=== PATIENT | female | born 1995 | race Caucasian/White ===

== ENCOUNTER → 2022-01-18 08:26 | Outpatient (CLI) | payer BC, SELFPAY ==
[2022-01-18 09:50] LABS: HCG,Quantitative 12424 mIU/ml (0-5.42)
== END ==
PROVIDERS: PCP Pediatrics; Visit Provider Obstetrics & Gynecology
DX: N92.6 Irregular menstruation, unspecified (principal); Z32.00 Encounter for pregnancy test, result unknown
CPT/HCPCS: 36415; 84702

== ENCOUNTER → 2022-01-29 16:21 | Outpatient (CLI) | payer BC, SELFPAY ==
[2022-01-31 10:13] LABS: Progesterone 13.1 ng/mL (.)
[2022-02-01 14:25] LABS: Neisseria gonorrhoeae, NAA Negative (Negative)
== END ==
PROVIDERS: PCP Pediatrics; Visit Provider Obstetrics & Gynecology
DX: Z34.90 Encounter for supervision of normal pregnancy, unspecified, unspecified trimester (principal)
CPT/HCPCS: 36415; 84144; 84702; 87086; 87491; 87591

== ENCOUNTER → 2022-02-13 16:37 | Outpatient (CLI) | payer BC, SELFPAY ==
[2022-02-13 17:53] LABS: Basophils # 0.1 K/mm3 (0-0.2); Basophils % 0.7 % (0.1-2.0); Eosinophils # 0.1 K/mm3 (0.0-0.4); Eosinophils % 0.8 % (0.1-12.0); Hematocrit 38.2 % (37.0-47.0); Hemoglobin 13.2 g/dL (12.2-16.2); Lymphocytes # 2.1 K/mm3 (0.7-4.5); Lymphocytes % 25.4 % (10-50); Mean Corpuscular HGB Conc 34.5 g/dL (31.8-35.4); Mean Corpuscular Hemoglobin 30.9 pg (27.0-31.2); Mean Corpuscular Volume 89.7 fl (81-99); Mean Platelet Volume 7.1 fl (7.4-10.4); Monocytes # 0.3 K/mm3 (0.1-1.0); Monocytes % 3.6 % (1.7-9.3); Neutrophils # 5.7 K/mm3 (1.8-7.8); Neutrophils % 69.5 % (37.0-80.0); Platelet Count 250 K/mm3 (142-424); Red Blood Count 4.25 M/mm3 (4.20-5.40); Red Cell Distribution Width 13.8 % (11.5-17.5); White Blood Count 8.3 K/mm3 (4.8-10.8)
[2022-02-15 09:31] LABS: HIV Screen 4th Generation wRfx Non Reactive (Non Reactive); Rubella Antibodies, IgG 1.27 index (Immune >0.99)
[2022-02-15 18:06] LABS: Rapid Plasma Reagin Ab Titer Non Reactive (NonRea<1:1)
[2022-02-19 23:37] LABS: Hepatitis B Surface Antigen NEGATIVE; Hepatitis C Antibody <0.1
== END ==
PROVIDERS: PCP Pediatrics; Visit Provider Obstetrics & Gynecology
DX: Z34.90 Encounter for supervision of normal pregnancy, unspecified, unspecified trimester (principal)
CPT/HCPCS: 36415; 85025; 86593; 86703; 86762; 86850; 87086; 87340; 87380; G0432

== ENCOUNTER → 2022-04-28 14:41 | Outpatient (CLI) | payer BC, SELFPAY ==
--- NOTE | 2022-04-28 14:47 | US_ITS ---
FINAL REPORT CLINICAL HISTORY: 20 week anatomy scan FINDINGS: There is a single, living intrauterine gestation with average ultrasound age of 20 weeks 0 days. Heart rate is detected at 140 beats per minute. Cervix measures 4.05 cm. Fetus in the breech position. There is grade 1 anterior placenta with placenta previa noted. IMPRESSION: Placenta previa. Recommend follow-up level 2 ultrasound at high risk center. Reviewed, Interpreted and Dictated by Patrick Haskins MD Transcribed by Lashaun Blanco Authenticated and . [facility]
== END ==
PROVIDERS: PCP Pediatrics; Visit Provider Obstetrics & Gynecology
DX: Z34.90 Encounter for supervision of normal pregnancy, unspecified, unspecified trimester (principal); Z3A.20 20 weeks gestation of pregnancy
CPT/HCPCS: 76811

== ENCOUNTER → 2022-06-27 12:49 | Outpatient (CLI) | payer BC, SELFPAY ==
--- NOTE | 2022-06-27 12:49 | US_ITS ---
FINAL REPORT CLINICAL HISTORY: following placenta previa COMPARISON: 04/28/2022 FINDINGS: There is a single live intrauterine gestation. Presentation is cephalic. The cervix is closed and measures 3 cm. Placenta is anterior, grade 2. There is no evidence of placenta previa. movement is noted. heart rate is 142 beats per minute. Three-vessel cord with satisfactory umbilical cord insertion. Four-chamber heart is noted. ABDOMEN: Both kidneys are unremarkable. Stomach is unremarkable. AMNIOTIC FLUID: 12 cm, normal MEASUREMENTS: ULTRASOUND AGE: 29 weeks 3 days. GESTATION AGE: 27 weeks 6 days. ESTIMATED WEIGHT: 1312 g GROWTH PERCENTILE: 80% BPD: 7.54 cm corresponding to 30 weeks 2 days. OFD: 9.35 cm corresponding to 28 weeks 5 days. HC: 26.68 cm corresponding to 29 weeks 1 day. AC: 24.68 cm corresponding to 29 weeks 0 days. FL: Length 5.43 cm corresponding to 28 weeks 6 days. HC/AC: 1.08 CI: 81% FL/BPD: 72% FL/AC: 22% IMPRESSION: Single living IUP with an ultrasound age of 29 weeks 3 days. No evidence of placenta previa. No anomalies noted. Reviewed, Interpreted and Dictated by Emiliano Londono III, MD Transcribed by Stefanie Tay Authenticated and [facility]
== END ==
PROVIDERS: PCP Pediatrics; Visit Provider Obstetrics & Gynecology
DX: O44.00 Complete placenta previa NOS or without hemorrhage, unspecified trimester (principal)
CPT/HCPCS: 76816

== ENCOUNTER 2022-06-30 08:11 | Outpatient (CLI) | payer BC, SELFPAY ==
[2022-06-30 08:31] LABS: Basophils % 0.2 % (0.1-2.0); Eosinophils # 0.1 K/mm3 (0.0-0.4); Eosinophils % 1.3 % (0.1-12.0); Hematocrit 37.2 % (37.0-47.0); Hemoglobin 12.5 g/dL (12.2-16.2); Lymphocytes # 1.9 K/mm3 (0.7-4.5); Lymphocytes % 21.1 % (10-50); Mean Corpuscular HGB Conc 33.7 g/dL (31.8-35.4); Mean Corpuscular Volume 94.9 fl (81-99); Mean Platelet Volume 8.3 fl (7.4-10.4); Monocytes # 0.4 K/mm3 (0.1-1.0); Monocytes % 4.7 % (1.7-9.3); Neutrophils # 6.7 K/mm3 (1.8-7.8); Neutrophils % 72.7 % (37.0-80.0); Platelet Count 243 K/mm3 (142-424); Red Blood Count 3.92 M/mm3 (4.20-5.40); Red Cell Distribution Width 13.8 % (11.5-17.5); White Blood Count 9.2 K/mm3 (4.8-10.8)
[2022-06-30 08:38] LABS: Glucose,Fasting 78 mg/dl (74-100)
[2022-06-30 10:10] VITALS: BP 114/74; PULSE 73; RESP 18; O2SAT 99
[2022-06-30 11:15] LABS: Glucose 1 Hour 122 mg/dL (74-100)
== END 2022-06-30 10:22 | disposition home or self-care (01) ==
PROVIDERS: PCP Pediatrics; Visit Provider Obstetrics & Gynecology
DX: Z34.90 Encounter for supervision of normal pregnancy, unspecified, unspecified trimester (principal); Z3A.20 20 weeks gestation of pregnancy
CPT/HCPCS: 36415; 82951; 85025; 96372; J2790

== ENCOUNTER → 2022-08-29 17:02 | Outpatient (CLI) | payer BC, SELFPAY | PROVIDERS: Visit Provider Obstetrics & Gynecology | DX: Z34.93 Encounter for supervision of normal pregnancy, unspecified, third trimester (principal); Z3A.37 37 weeks gestation of pregnancy | CPT/HCPCS: 86403 ==

== ENCOUNTER 2022-09-13 08:45 | Inpatient (IN) | payer BC, SELFPAY ==
[2022-09-13 07:31] VITALS: BMI 26.3
[2022-09-13 08:18] LABS: Microscopic, Urine URINE MICROSCOPIC (MICROSCOPIC)
[2022-09-13 08:20] VITALS: BP 127/89; PULSE 80; RESP 18; TEMP 36.9; O2SAT 99; BMI 26.3
[2022-09-13 08:25] LABS: Appearance,Urine CLEAR (Clear); Bilirubin,Urine Negative (Negative); Blood, Urine TRACE-I (Negative); Color,Urine YELLOW (Yellow); Glucose,Urine (UA) Negative (Negative); Ketones,Urine Negative (Negative); Leukocyte Esterase,Urine Negative (Negative); Nitrate,Urine Negative (Negative); PH,Urine 6.5 (5.0-8.5); Protein,Urine Negative (Negative); Urobilinogen,Urine 0.2 EU/dl (0.2)
[2022-09-13 08:31] LABS: Fetal Membrane Rupture (Rapid) Positive (Negative)
[2022-09-13 08:41] LABS: Bacteria,Urine Trace /lpf
[2022-09-13 08:42] LABS: Benzodiazepines Screen,Urine Negative ng/ml (<200)
[2022-09-13 08:43] LABS: Amphetamine/Metha Screen,Urine Negative ng/ml (<1000)
[2022-09-13 08:44] LABS: Barbiturates Screen,Urine Negative ng/ml (<200); Cannabinoid Screen,Urine Negative ng/ml (<50)
[2022-09-13 08:45] LABS: Cocaine Screen,Urine Negative ng/ml (<300); Methadone Screen,Urine Negative ng/ml (<300)
[2022-09-13 08:46] LABS: Opiate Screen,Urine Negative ng/ml (<300)
[2022-09-13 08:47] LABS: Phencyclidine Screen,Urine Negative ng/ml (<25)
[2022-09-13 09:42] LABS: Basophils % 0.3 % (0.1-2.0); Eosinophils # 0.1 K/mm3 (0.0-0.4); Eosinophils % 0.7 % (0.1-12.0); Hematocrit 35.1 % (37.0-47.0); Hemoglobin 11.8 g/dL (12.2-16.2); Lymphocytes # 1.8 K/mm3 (0.7-4.5); Lymphocytes % 18.7 % (10-50); Mean Corpuscular HGB Conc 33.7 g/dL (31.8-35.4); Mean Corpuscular Hemoglobin 28.9 pg (27.0-31.2); Mean Corpuscular Volume 85.9 fl (81-99); Mean Platelet Volume 8.7 fl (7.4-10.4); Monocytes # 0.6 K/mm3 (0.1-1.0); Monocytes % 5.9 % (1.7-9.3); Neutrophils # 7.2 K/mm3 (1.8-7.8); Neutrophils % 74.5 % (37.0-80.0); Platelet Count 208 K/mm3 (142-424); Red Blood Count 4.08 M/mm3 (4.20-5.40); Red Cell Distribution Width 14.6 % (11.5-17.5); White Blood Count 9.6 K/mm3 (4.8-10.8)
--- NOTE | 2022-09-13 16:08 | EXP.OB.APHP ---
OB - H&P: HPI Antepartum History of Present Illness Chief complaint: Leakage of fluid History of present illness: Mrs Shannon Zamudio is a 27 yo at 39w0d who presents to [facility] Labor and Delivery with complaint of leakage of fluid this morning at 0615. Admits to contractions. Baby is very active. Amnisure was positive. GBS negative. History of Present Criteria for establishing EDC:: LMP confirmed by 1st trimester US care: good care Ultrasounds: normal mid trimester US Obstetrical complications: none Medical complications: none Labs Blood type: O (-) negative Rubella: immune RPR/VDRL: nonreactive GBS status: negative HBsAG: negative PFSH [facility] Disclaimer: The information contained in this section may have been updated after the patient was seen, as this information can be updated by other users. Medical History (Updated 09/13/22 @ 16:17 by Ivett Laurne DO) 39 weeks gestation of History of miscarriage Placenta previa antepartum in second trimester related nausea, antepartum Rh negative status during Spontaneous onset of labor Spontaneous rupture of membranes Threatened in early Surgical History No history of previous surgery Family History Other No significant family history Social History Smoking Status: Never smoker alcohol intake: never current occupational status: previously employed Travel in the last 8 weeks: None Review of Systems Review of Systems Review of systems:: pertinent systems reviewed and negative unless documented below Meds Home Medications and Allergies Home Medications Medication Instructions Recorded Confirmed Type vit no.95-ferrous 1 tab PO DAILY Supplement 09/13/22 09/13/22 History fumarate 28 mg-folic acid 800 mcg tablet () New Prescriptions to Start Prescriptions: Allergies Allergy/AdvReac Type Severity Reaction Status Date / Time No Known Allergies Allergy Verified 09/12/22 09:10 OB - H&P: Exam Physical Exam Vital signs: Temp Pulse Resp BP Pulse Ox O2 Del Method 98.4 F 80 18 127/89 99 Room Air 09/13/22 08:20 09/13/22 08:20 09/13/22 08:20 09/13/22 08:20 09/13/22 08:20 09/13/22 08:20 Constitutional no acute distress Routine HEENT Exam Head: Present normocephalic and atraumatic Eye: Absent conjunctivae pink ENT: Present mucous membranes moist and dentition normal Routine Neck Exam Present full ROM Routine Respiratory Exam Present CTA bilaterally and normal respiratory effort Routine Cardiovascular Exam Present RRR Routine Abdominal Exam Present soft (Gravid); Absent tenderness Routine Rectal Exam Patient deferred: visual exam Routine Exam External: Present normal urethra appearance; Absent erythema, swelling, tenderness, lesions or lacerations Routine Extremities Exam Present edema (+2 bilateral lower extremity edema) and full ROM; Absent calf tenderness Routine Neurological Exam Present alert, oriented X3 and moving all extremities Routine Psychiatric Exam Present normal affect and cooperative Detailed Labor and Delivery Exam Dilation (cm): 1 Effacement (%): 75 Cervix position: mid station: -1 Consistency: soft Membranes: ruptured (spontaneous rupture at 0615, forebag noted during exam and amniotomy performed at 1544, clear fluid noted) and spontaneously ruptured Amniotic fluid: clear Baseline heart rate: 125 monitor accelerations: Present monitor decelerations: Early MCC variability: Moderate (11-25) Contraction frequency (min): 3 Tachysystole: No OB - Results Labs Labs: Short CBC 09/13/22 Range/Units 09:26 WBC 9.6 (4.8-10.8) K/mm3 Hgb 11.8 L (12.2-16.2) g/dL Hct 35.1 L (37.0-47.0) % Plt Count 208
--- NOTE | 2022-09-13 18:44 | EXP.ANES.CKL ---
[facility] Disclaimer: The information contained in this section may have been updated after the patient was seen, as this information can be updated by other users. Medical History 39 weeks gestation of History of miscarriage Placenta previa antepartum in second trimester related nausea, antepartum Rh negative status during Spontaneous onset of labor Spontaneous rupture of membranes Threatened in early Surgical History No history of previous surgery Family History Other No significant family history Social History Smoking Status: Never smoker alcohol intake: never substance use type: denies use current occupational status: previously employed Travel in the last 8 weeks: None [facility] Anesthesia Checklist Patient Identification Patient Identification: Arm Band and Verbal (Name & ) Structural Data Admitted From: Inpatient Planned Operative Procedure/s: Labor epidural Consent for Planned Operative Procedure(s) Verified: Yes NPO Status Verified Time NPO: 00:00 Chart Verification Results Verified: CBC Additional verifications Patient : Yes Airway Assessment Mallampati Score:: Class I C-Spine Mobility Assessed: Yes TMJ Mobility Assessed: Yes Dentition: Good Dentition Neurological Assessment Level of Consciousness: Awake Hx Seizures: No Numbness or tingling in extremities: No Anesthesia Plan Anesthesia Risk discussed: Yes Anesthesia Plan: Verified ASA Class: II Anesthesia Type: Epidural
[2022-09-14] VITALS (10 sets, daily range): BP systolic 115–148; BP diastolic 61–94; PULSE 73–89; RESP 13–22; TEMP 36.6–36.9; O2SAT 96–100
--- NOTE | 2022-09-14 05:37 | EXP.LABOR.NO ---
Labor Note Subjective: Date: 09/14/22 Time: 07:10 regular contraction Comment:: Uncomfortable with epidural in place but infusion bottle empty Objective: NST:: Reactive Contractions:: every 2-3 minutes Cervical Dilation:: 4-5 Effacement:: 80% Station: -1 Membranes: ruptured and spontaneously ruptured Fetus: Monitoring?: Yes Assessment: Labor progressing?: No Problems: (1) 39 weeks gestation of : Category: Medical Code(s): Z3A.39 - 39 weeks gestation of (2) Spontaneous rupture of membranes: Category: Medical (3) Spontaneous onset of labor: Category: Medical (4) Rh negative status during : Qualifiers: Trimester: third trimester Qualified Code(s): O26.893 - Other specified related conditions, third trimester; Z67.91 - Unspecified blood type, Rh negative Category: Medical Code(s): O26.899 - Other specified related conditions, unspecified trimester; Z67.91 - Unspecified blood type, Rh negative (5) Failure to progress in labor: Category: Medical Code(s): O62.2 - Other uterine inertia Plan: Plan for ?: Yes Additional information:: Cervical exam unchanged over 6 hours. Pitocin reached 15 units. Multiple position changes. Category 2 strip with intermittent variables. Epidural pump ran out and patient became very uncomfortable Decision was made to proceed with primary Discussed risks, benefits, alternatives, expectations and possible complications of surgery. All questions addressed and answered. Patient voiced understanding of risks and possible complications. Consent form signed Proceed with primary
[2022-09-14 06:27] LABS: Cord Blood PH 7.36 (7.35-7.45)
--- NOTE | 2022-09-14 07:14 | P.PNANES_ITS ---
[facility] Anesthesia Record Part I Anesthesia Record I Intake, IV Amount: 850 Hydration:: Adequate Estimated blood loss (mL): 800 Urine output (mL): 200 Blood Pressure: 140/92 SaO2: 97 Pulse Rate: 88 Airway Patency:: Patent Respiratory Rate: 20 Temperature: 98.5 F Pain scale (0-10): 5 Nausea:: No Vomiting:: No Patient is:: Awake Stable to PACU at:: 07:10
--- NOTE | 2022-09-14 07:17 | EXP.OP.NOTE ---
Date of procedure: 09/14/22 Pre-op Diagnosis:: 1. IUP at 39w1d 2. Spontaneous rupture of membranes 3. Onset of labor 4. Failure to progress Post-op Diagnosis:: 1. IUP at 39w1d 2. Spontaneous rupture of membranes 3. Onset of labor 4. Failure to progress Procedure performed:: Primary Low Transverse Section Surgeon:: Ivett Lauren DO Wet Cleaner Machine(s):: Mehrdad Doan MD MORTICIAN [employer]PPLIES SALES REPRESENTATIVE:: Claire Rice Anesthesia: spinal Estimated blood loss (mL): 800 Clinical Note:: Mrs Shannon Zamudio is a 27 yo at 39w0d who presents to [facility] Labor and Delivery with complaint of leakage of fluid this at 0615 on 09/13/22. Amnisure was positive. GBS negative. Pitocin was started to augment labor. At 1544 forebag was noted and amniotomy was performed with large amount of clear fluid. Cervical exam at 1544 was 1.5/75/-1. At 1900 she was 3 cm dilated and received and epidural. At 0045 she was 4.5/80/-1. Baby started having category 2 strip with intermittent variables and intermittent minimal and moderate variability. Epidural pump ran out stopped around 0200. She began to get uncomfortabe. At 1630 cervix was unchanged with variable decelerations noted, category 2 strip. Pitocin was stopped. Decision was made to proceed with primary for failiure to progress. At 0530 cervical exam was performed and was unchanged. Operative findings:: 1. Live male baby (baby's name is Gemma) weighing 8 lb 14 oz, APGARs 8, 9. 2. Nuchal cord x 1, non compressing 3. Grossly normal appearing uterus, bilateral fallopian tubes and ovaries Operative note:: The risks, benefits and alternatives of the procedure were reviewed with the patient. Informed consent was obtained. Patient was taken to the operating room where spinal anesthesia was placed. The patient received 2 grams of Ancef preoperatively. Patient was placed in dorsal supine position with a leftward tilt. SCDs in place. Gaona catheter had been placed and was draining clear urine prior to the start of the procedure. Vagina was prepped with Betadine swabs x 3. heart tones were obtained. Patient was then prepped and draped in normal sterile fashion. Allis clamp test was performed to ensure adequate anesthesia. A Pfannenstiel skin incision was made 2 cm above pubic symphysis. This was carried through to underlying layer of fascia. Fascia was incised in midline, extended laterally with Thomas scissors. Superior aspect of fascial incision was grasped with two Jade clamps, elevated up, and rectus muscle dissected off bluntly and sharply with Thomas scissors. The retcus muscle was then in the midline and the peritoneum was entered bluntly with a digit. Peritoneal incision was then extended superiorly and inferiorly with good visualization of the bladder. Aayush retractor was inserted. The lower uterine segment was incised in a transverse fashion. Head was delivered without difficulty. Nuchal x 1. Body delivered through cord. Remainder of body was delivered without difficulty. Mouth and nares were bulb suctioned. Spontaneous cry was noted. Delayed cord clamping was performed for 60 seconds. The umbilical cord was clamped and cut. The infant was handed to awaiting pediatric staff in stable condition. Dr. Elizalde was present. Apgars were 8(1 min), 9(5 min). Section of umbilical cord was collected for cord gases. Cord blood was obtained. Gentle traction on the umbilical cord and uterine fundal massage delivered the placenta. Placenta was intact. Uterus was cleared of all clots and debris with a moist laparotomy sponge. Corners of the uterine incision were grasped with Allis clamps. The uterine incision was reapproximated with # 1 Vicryl suture in a running, locked stitch. Second layer of the same stitch was used to imbricate the incision. Vesicouterine peritoneum was reapproximated in a running locked stitch with 0-Vicryl suture. Hemostasis was noted. Posterior cul-de-sac was cleaned with moist laparotomy sponge. Gutters cleared
--- NOTE | 2022-09-14 07:56 | SUR.OPER ---
0618- Viable infant male born at this time 0630- spoke to JulissaRT regarding cord gas of 7.35, results relayed to MD Lauren, NNO 0630- 0.2mg of IM Methergine given at this time per verbal order from MD Lauren, administered by SYLVIA Kidd
[2022-09-15 07:21] LABS: Basophils % 0.2 % (0.1-2.0); Eosinophils # 0.1 K/mm3 (0.0-0.4); Hematocrit 27.5 % (37.0-47.0); Lymphocytes # 1.6 K/mm3 (0.7-4.5); Lymphocytes % 14.2 % (10-50); Mean Corpuscular HGB Conc 32.9 g/dL (31.8-35.4); Mean Corpuscular Hemoglobin 29.5 pg (27.0-31.2); Mean Corpuscular Volume 89.8 fl (81-99); Mean Platelet Volume 8.8 fl (7.4-10.4); Monocytes # 0.5 K/mm3 (0.1-1.0); Monocytes % 4.1 % (1.7-9.3); Neutrophils # 8.9 K/mm3 (1.8-7.8); Neutrophils % 80.5 % (37.0-80.0); Platelet Count 194 K/mm3 (142-424); Red Blood Count 3.06 M/mm3 (4.20-5.40); Red Cell Distribution Width 14.5 % (11.5-17.5); White Blood Count 11.1 K/mm3 (4.8-10.8)
--- NOTE | 2022-09-15 07:24 | EXP.ANES.II ---
[facility] Anesthesia Record Part II Anesthesia Record Part II Discharge Time: 07:40 Destination: Obstetric PACU nurse assessment reviewed?: Yes Patient Condition:: Good Anesthesia Complications:: None Swallowing reflex intact?: Yes Cyanosis?: No Blood Pressure: 148/93 Pulse Rate: 89 Temperature: 98.5 F Mental Status: Alert & Oriented Pain level:: 0 Nausea and/or vomitting:: None Intake, IV Amount: 0
[2022-09-15 07:25] VITALS: BP 148/93; PULSE 89; TEMP 36.9
[2022-09-15 07:35] VITALS: BP 100/55; PULSE 68; RESP 16; TEMP 36.5; O2SAT 97
--- NOTE | 2022-09-15 10:47 | P.PN_ITS ---
Subjective *Date: 09/15/22 *Time: 08:15 Interval history: She is doing very well this morning. She is eating and drinking and ambulating. Her hemoglobin is 9.0. She looks pale but she denies any shortness of breath or dizziness. She is breast-feeding. Her pain is well-controlled. Medical Exam Vital signs and Labs for Last 24 Hours: Vital Signs Temp Pulse Resp BP Pulse Ox O2 Del Method 09/15/22 07:35 97.7 F 68 16 100/55 L 97 Room Air 09/14/22 17:45 98.3 F 77 20 115/75 100 Room Air 09/14/22 11:00 73 18 126/71 98 Room Air 09/14/22 13:00 77 20 121/65 99 Room Air Intake and Output 09/14/22 09/15/22 09/15/22 19:59 03:59 11:59 Intake Total 0 / 0 Balance 0 / 0 Intake: Intake, Total IV Amount 0 / 0 Laboratory Results - last 24 hr 09/13/22 09:26: Blood Type O Negative, Antibody Screen Positive, Antibody Identification Anti-D, Crossmatch (AHG) See Detail 09/15/22 07:04: WBC 11.1 H, RBC 3.06 L, Hgb 9.0 L, Hct 27.5 L, MCV 89.8, MCH 29.5, MCHC 32.9, RDW 14.5, Plt Count 194, MPV 8.8, Neut % (Auto) 80.5 H, Lymph % (Auto) 14.2, [facility] % (Auto) 4.1, Eos % (Auto) 1.0, Baso % (Auto) 0.2, Neut # (Auto) 8.9 H, Lymph # (Auto) 1.6, [facility] # (Auto) 0.5, Eos # (Auto) 0.1, Baso # (Auto) 0.0 I & O for Labs for Last 24 Hours: Intake & Output 09/12/22 09/13/22 09/14/22 09/15/22 11:59 11:59 11:59 11:59 Intake Total 850 / 850 0 / 0 Balance 850 / 850 0 / 0 Weight 144 lb Constitutional: Present no acute distress Comment:: She looks pale. Head: Present atraumatic Respiratory: Present normal respiratory effort; Absent accessory muscle use Assessment and Plan *Assessment and plan (1) Failure to progress in labor: Status: Acute Category: Medical Code(s): O62.2 - Other uterine inertia (2) delivery delivered: Status: Acute Category: Medical Code(s): O82 - Encounter for delivery without indication Plan She is doing very well. If she continues to do well we will consider sending her home tomorrow. She will continue with breast-feeding.
--- NOTE | 2022-09-16 08:36 | EXP.DC.SUM ---
General Admission date:: 09/13/22 Discharge date: 09/16/22 HPI HPI HPI: She is a 27-year-old 2 para 0 at 39 weeks gestational age. She arrived in the morning of September 13, 2022 with ruptured membranes. She was started on IV oxytocin and really failed to progress beyond about 3 to 4 cm. As result of this pelvic disproportion was diagnosed and she was taken for a primary lower segment transverse section. Hospital Course Hospital Course Hospital Course: She arrived with ruptured membranes and was started on IV oxytocin. She subsequently had 4 water broken and she really failed to progress beyond about 3 cm. As result of that pelvic disproportion was diagnosed and she was taken for a primary lower segment transverse section. She delivered spontaneously a liveborn male child at 6:18 AM on the morning of September 14, 2022. The baby weighed 8 pounds 14 ounces and had Apgars of 8 at 1 minute and 9 at 5 minutes. She has done well post operatively and has remained afebrile throughout her hospitalization. She is eating and drinking and ambulating. She is breast-feeding. Her incision is clean and dry and her pain is well-controlled with the T AP block. She is just taking [id number] analgesics. She has O Rh- blood and her baby had negative blood so she did not receive RhoGAM. She is rubella immune and group B streptococcus negative. Her digital marketing program manager is Dr. Wells. She is discharged home to follow-up with Dr. Lauren in 2 weeks time. She will continue with her vitamins. She will brain picker some iron tablets as well. She was given a prescription for Percocet 5/325 number 20 tablets. She will continue with Tylenol and ibuprofen. She was given the usual instructions with respect to limiting her activity, driving and sexual activity. She was given instructions with respect to wound care. Her condition on discharge is stable and improved. Exam Data for Last 24 hours Vital signs and Labs for Last 24 Hours: Temp Pulse Resp BP Pulse Ox O2 Del Method 97.7 F 68 16 100/55 L 97 Room Air 09/15/22 07:35 09/15/22 07:35 09/15/22 07:35 09/15/22 07:35 09/15/22 07:35 09/15/22 07:35 I & O for Last 24 hours: Intake & Output 09/13/22 09/14/22 09/15/22 09/16/22 11:59 11:59 11:59 11:59 Intake Total 850 / 850 0 / 0 Balance 850 / 850 0 / 0 Weight 144 lb Constitutional Constitutional: no acute distress *Routine HEENT Exam Head: Present normocephalic *Routine Neck Exam Neck: Present full ROM *Routine Respiratory Exam Respiratory: Present normal respiratory effort; Absent accessory muscle use *Routine Abdominal Exam Abdominal: Present soft; Absent tenderness Comments: Her incision is clean and dry. DS: Diagnosis Discharge Diagnosis (1) Failure to progress in labor: Status: Acute Code(s): O62.2 - Other uterine inertia (2) delivery delivered: Status: Acute Code(s): O82 - Encounter for delivery without indication (3) Rh negative status during : Status: Acute Code(s): O26.899 - Other specified related conditions, unspecified trimester; Z67.91 - Unspecified blood type, Rh negative Qualifiers: Trimester: third trimester Qualified Code(s): O26.893 - Other specified related conditions, third trimester; Z67.91 - Unspecified blood type, Rh negative (4) anemia: Status: Acute Code(s): O90.81 - Anemia of the puerperium Meds Home Medications and Allergies Home Medications Medication Instructions Recorded Confirmed Type vit no.95-ferrous 1 tab PO DAILY Supplement 09/13/22 09/13/22 History fumarate 28 mg-folic acid 800 mcg tablet () oxycodone-acetaminophen 5 mg-325 1 tab PO Q6H PRN pain #14 tabs 09/16/22 Rx mg tablet New Prescriptions to Start Prescriptions: oxycodone-acetaminophen Mehrdad Doan
== END 2022-09-16 11:30 | disposition home or self-care (01) | DRG 788 ==
LOC: OBOUT 08:45 → OB 08:45
PROVIDERS: Admitting Provider Nurse Practitioner Obstetrics & Gynecology; PCP Internal Medicine Adolescent Medicine; Visit Provider Obstetrics & Gynecology
PROC: 10D00Z1 Extraction of Products of Conception, Low, Open Approach (ICD-10-PCS; principal; 2022-09-14 05:30)
DX: O69.81X0 Labor and delivery complicated by cord around neck, without compression, not applicable or unspecified (principal); O62.2 Other uterine inertia; Z3A.39 39 weeks gestation of pregnancy; Z37.0 Single live birth
CPT/HCPCS: 59514; 59025; 80305; 81001; 82800; 84112; 85025; 86850; 86870; 94761; 96374; C9290; G0283; J0595; J1756; J2405

== ENCOUNTER 2023-03-06 09:55 | Outpatient (CLI) | payer BC, SELFPAY ==
[2023-03-06 10:31] LABS: Basophils % 0.5 % (0.1-2.0); Eosinophils # 0.1 K/mm3 (0.0-0.4); Eosinophils % 2.9 % (0.1-12.0); Hematocrit 41.4 % (37.0-47.0); Hemoglobin 14.4 g/dL (12.2-16.2); Lymphocytes # 1.5 K/mm3 (0.7-4.5); Lymphocytes % 39.4 % (10-50); Mean Corpuscular HGB Conc 34.8 g/dL (31.8-35.4); Mean Corpuscular Hemoglobin 30.8 pg (27.0-31.2); Mean Corpuscular Volume 88.6 fl (81-99); Mean Platelet Volume 7.2 fl (7.4-10.4); Monocytes # 0.2 K/mm3 (0.1-1.0); Monocytes % 4.5 % (1.7-9.3); Neutrophils % 52.6 % (37.0-80.0); Platelet Count 198 K/mm3 (142-424); Red Blood Count 4.67 M/mm3 (4.20-5.40); Red Cell Distribution Width 13.5 % (11.5-17.5); White Blood Count 3.8 K/mm3 (4.8-10.8)
[2023-03-06 10:54] LABS: Alanine Aminotransferase 18 U/L (12-78); Albumin Level 4.2 g/dl (3.5-5.0); Albumin/Globulin Ratio 1.4 (1.1-1.8); Alkaline Phosphatase 56 U/L (38-126); Anion Gap 14.9 mEq/L (5-15); Aspartate Amino Transferase 23 U/L (14-36); Bilirubin,Total 0.3 mg/dl (0.2-1.3); Blood Urea Nitrogen 7 mg/dl (7-17); Calcium 9.3 mg/dl (8.4-10.2); Carbon Dioxide 25 mmol/L (22.0-30.0); Chloride 105 mmol/L (98-107); Estimated Glomerular Filt Rate 100 ml/min (>60); GFR (African American) 121 ML/MIN (>60); Globulin 2.9 g/dL (1.3-3.2); Glucose 98 mg/dl (74-100); Potassium 3.9 mmoL/L (3.5-5.1); Sodium 141 mmol/L (136-145); Total Protein,Serum 7.1 g/dl (6.3-8.2)
[2023-03-06 11:25] LABS: Thyroid Stimulating Hormone < 0.02 uIU/mL (0.465-4.68)
[2023-03-06 11:44] LABS: Vitamin B12 609 pg/mL (239-931)
[2023-03-06 17:53] LABS: Ferritin 10.2 ng/ml (6.24-137)
== END 2023-03-06 23:59 ==
LOC: LAB 09:56
PROVIDERS: PCP Internal Medicine Adolescent Medicine; Visit Provider Internal Medicine Adolescent Medicine
DX: N92.1 Excessive and frequent menstruation with irregular cycle (principal)
CPT/HCPCS: 36415; 80053; 82607; 82728; 84443; 85025

== ENCOUNTER 2023-03-07 13:23 | Emergency (ER) | payer BC, SELFPAY ==
[2023-03-07 13:25] VITALS: BP 120/87; PULSE 115; RESP 16; TEMP 36.7; O2SAT 99; BMI 21.0
[2023-03-07 13:40] VITALS: BP 136/83; PULSE 89; RESP 16; O2SAT 98
[2023-03-07 13:41] LABS: Coronavirus 19, PCR Not Detected (NotDetected); Influenza A, PCR Not Detected (NotDetected); Influenza B, PCR Not Detected (NotDetected)
--- NOTE | 2023-03-07 13:48 | PC.NURSE ---
Dr. Stone speaking with Dr. Santana at this time.
[2023-03-07] MEDS: IBUPROFEN 600 MG TABLET PO (13:59)
[2023-03-07 14:00] VITALS: BP 113/84; PULSE 86; RESP 18; O2SAT 99
[2023-03-07] MEDS: ACETAMINOPHEN 500MG TAB 1000 MG PO (14:00)
--- NOTE | 2023-03-07 14:07 | HMH.EDGENADL ---
Discharge Plan Disposition Patient Disposition: Home, Self-Care Condition: Good Prescriptions Prescriptions: No Action ferrous sulfate 325 mg (65 mg iron) tablet 325 mg PO DAILY levonorgestrel-ethinyl estrad [Aviane] 0.1-20 mg-mcg tablet 1 tab PO DAILY Qty: 84 3RF PNV cmb#95-ferrous fumarate-FA [] 28 mg iron- 800 mcg Tablet 1 tab PO DAILY Referrals Follow up/Referrals: Anjum Santana MD [Primary Care Provider] - See instructions Activity Restrictions/Add. Instructions Additional Instructions/Restrictions: You were evaluated in the ER today. You are appropriate for discharge at this time. Follow-up with your primary care physician as directed. Drink plenty of water, take Tylenol or ibuprofen if needed for headache. Return to the ER with new, worsening, or otherwise concerning symptoms. Clinical Impressions Clinical Impression: Headache Discharge ED Provider: Kari Stone General Adult HPI General Chief complaint: Upper Respiratory Infection Stated complaint: Abnormal blood work,body aches,tired,WHITLOCK Time Seen by Provider: 03/07/23 13:38 Mode of Arrival: Ambulatory Source of Information: Patient Limitations: No Limitations Description of Symptoms (Recalled from ER Triage Doc. by RN): pt presents to ED c/o headache, exhaustion, body aches x 4 days. pt states she had her lab work obtained yesterday in her PCP office and that her wbc and tsh were abnormal. History of Present Illness HPI narrative: This 27-year-old female who is 5 months presents to the ER with concerns of headache, body aches, dizziness with standing. Patient states she discussed the symptoms with her PCP who ordered labs which were performed yesterday. She had findings of low TSH and patient's called the office today stating she was continuing to have symptoms including headache and dizziness so they were recommended to come to the ER for further evaluation. Patient states she only has dizziness when standing up and that is when her headache is the worst also. She admits that she has been having headache, body aches, and the other associated symptoms for at least the last 4 days. Patient is on an iron supplement and on control. She has no vision changes, no numbness, no tingling, no weakness, no focal deficits, no other positive review of systems at this time. Patient admits that she has not taken any Tylenol or ibuprofen for her headache. She denies any palpitations or shortness of breath. She denies any swelling. She describes her dizziness as lightheadedness upon standing, no room spinning or being off balance. Related Data Home Medications Medication Instructions Recorded Confirmed vit no.95-ferrous 1 tab PO DAILY Supplement 09/13/22 10/29/22 fumarate 28 mg-folic acid 800 mcg tablet () ferrous sulfate 325 mg (65 mg 325 mg PO DAILY 09/29/22 10/29/22 iron) tablet Previous Rx's Medication Instructions Recorded levonorgestrel-ethinyl estradiol 1 tab PO DAILY #84 tabs 12/31/22 0.1 mg-20 mcg tablet (Aviane) Allergies Allergy/AdvReac Type Severity Reaction Status Date / Time No Known Allergies Allergy Verified 10/29/22 13:39 [facility] Disclaimer: The information contained in this section may have been updated after the patient was seen, as this information can be updated by other users. Medical History 39 weeks gestation of Failure to progress in labor History of miscarriage Placenta previa antepartum in second trimester related nausea, antepartum Rh negative status during Spontaneous onset of labor Spontaneous rupture of membranes Threatened in early Surgical History delivery delivered Family History Other No significant family history Social History Smoking Status: Never smoker alcohol intake: never substance use type: denies use current occupational status: previously employed Travel in the last 8 weeks: None ROS Obtained: Yes All systems reviewed & no additional complaints except as documented Constitutional Constitutional: Denies chills, Denies fever(s), Reports headache(s) and Denies weakness Eyes Eyes: Denies change in vision ENT Ears, Nose, Mouth, and Throat: Reports dizziness, Reports headache(s), Denies nasal congestion and Denies sore throat Cardiovascular Cardiovascular: Denies chest pain, Denies dyspnea and Denies leg edema Respiratory Respiratory: Denies cough and Denies dyspnea Gastrointestinal Gastrointestingal: Denies constipation, diarrhea, nausea or vomiting Genitourinary Female Genitourinary: Denies dysuria Musculoskeletal Musculoskeletal: Denies arthralgias, Reports myalgias, Denies numbness and Denies tingling Integumentary/Breasts Skin/Breast: Denies change in pigmentation Neurologic Neurologic: Reports dizziness, Reports headache(s), Denies numbness, Denies tingling and Denies weakness Physical Exam General General appearance: alert and in no apparent distress Head Head exam: atraumatic and normocephalic Eye Eye exam: Present PERRL and EOMI; Absent nystagmus ENT ENT exam: Present mucous membranes moist Neck Neck exam: Present normal inspection and full ROM Chest Chest inspection: Present symmetric chest wall rise Respiratory Respiratory exam: Present normal lung sounds bilaterally; Absent respiratory distress, wheezes or stridor Cardiovascular Cardiovascular exam: Present regular rate and normal rhythm Abdominal Exam Abdominal exam: Present soft; Absent distention Extremities Exam Extremities exam: Present full ROM Neurological Exam Neurological exam: Present alert, oriented X3, CN II-XII intact and normal gait; Absent motor sensory deficit Psychiatric Psychiatric exam: Present normal affect and normal mood Skin Skin exam: Present warm and dry Medical Decision Making Pablo Inquiry Pt receiving controlled substance: No Vital Signs: 03/07/23 13:25 03/07/23 13:40 03/07/23 14:00 Temperature 98.1 F Temperature Source Oral Pulse Rate 89 86 Pulse Rate [Right Radial] 115 H Respiratory Rate 16 16 18 Blood Pressure 136/83 113/84 Blood Pressure [Right Arm] 120/87 Blood Pressure Mean 96 89 Blood Pressure Mean [Right Arm] 98 Blood Pressure Source [Right Arm] Automatic Cuff Blood Pressure Position [Right Arm] Sitting 02 Sat by Pulse Oximetry 99 98 99 Oxygen Delivery Method Room Air Lab Data Lab Results 03/07/23 13:34: SARS-CoV-2 (PCR) Not detected, Influenza A Untype (PCR) Not detected, Influenza Type B (PCR) Not detected 03/07/23 13:54: Free T4 2.55 H Orders (Tests/Meds): ED MEDICATIONS Discontinued Medications Generic Name Dose Route Start Last Admin Trade Name Freq PRN Reason Stop Dose Admin Acetaminophen 1,000 mg 03/07/23 13:51 03/07/23 14:00 Acetaminophen 500mg Tab PO 03/07/23 13:52 1,000 mg ONCE ONE Administration Ibuprofen 600 mg 03/07/23 13:51 03/07/23 13:59 Ibuprofen 600 Mg Tablet PO 03/07/23 13:52 600 mg ONCE ONE Administration ORDERS Category Date Time Status Free T4 (Free Thyroxine) Stat Lab 03/07/23 13:54 Completed Rapid PCR Covid and Flu A/B Stat Lab 03/07/23 13:34 Completed TgAb+Thyroglobulin,ALICIA or ANDRZEJ Stat Lab 03/07/23 13:48 Ordered Thyroid Peroxidase Antibodies Stat Lab 03/07/23 13:48 Ordered Medical Decision Narrative: In summary, this 27year old female presents to the emergency department today with headache, lightheadedness, concerns of laboratory abnormalities, body aches. On initial evaluation patient is hemodynamically stable, tachycardia that was present on arrival is absent on my exam, heart rate 88 during my exam, normotensive, cardiopulmonary exam reassuring, neuroexam has no focal deficits, no nystagmus. Differential diagnosis includes but is not limited to thyroid abnormality, Graves' disease, Lenore's, electrolyte abnormality, dehydration, anemia, I considered intracranial bleed or mass however I have extremely low suspicions for these given patient has no neurologic deficits and has been having symptoms for multiple days. I also considered BPPV however patient has no nystagmus and is able to freely move her head and neck without onset of symptoms. Also considered viral syndrome such as COVID, influenza. Based on these concerns, I ordered viral testing. I also discussed this case with Dr. Santana as his office had recommended her to come to the ER for evaluation and after discussing her clinical presentation and well-appearing presentation, he recommended free T4 as well as thyroglobulin and antibody studies. These have been ordered. He recommended that if patient's free T4 is above 14 to start atenolol, however if it is not above that he recommends outpatient follow-up and otherwise symptomatic management. Patient received Tylenol and ibuprofen in the ER. Labs personally reviewed demonstrate free T4 elevated at 2.55 but this is significantly lower than the threshold that Dr. Santana recommended treatment. Patient was stable on reassessment. Her headache is persistent but tolerable. She is appropriate for discharge at this time. Patient was given instructions on symptomatic management, follow up instructions, and return precautions for the emergency department. Patient indicated understanding and was discharged in stable condition. Critical Care Critical Care Time Critical Care Time: No
[2023-03-07 14:36] LABS: Free T4 (Free Thyroxine) 2.55 ng/dl (0.78-2.19)
--- NOTE | 2023-03-07 14:46 | PC.NURSE ---
DR CARPENTER AT BEDSIDE TO REEVALUATE PT
[2023-03-07 15:08] VITALS: BP 113/77; PULSE 80; RESP 18; TEMP 36.7; O2SAT 100
== END 2023-03-07 15:18 | disposition home or self-care (01) ==
PROVIDERS: Emergency Provider Emergency Medicine; PCP Internal Medicine Adolescent Medicine
DX: R51.9 Headache, unspecified (principal); R42 Dizziness and giddiness; R00.0 Tachycardia, unspecified
CPT/HCPCS: 84439; 87636; 99283; 99285

== ENCOUNTER 2023-04-23 06:39 | Outpatient (CLI) | payer BC, SELFPAY ==
--- NOTE | 2023-04-23 | NM_ITS ---
FINAL REPORT CLINICAL HISTORY: HYPERTHYROIDISM COMPARISON: None FINDINGS: THYROID UPTAKE AND SCAN: Thyroid uptake and scan was performed after the oral administration of 357 ?Ci of I-123. Only a 24-hour uptake was measured. The relative uptake between the right and left lobes measures 54% and 46% respectively, relatively symmetric, without any areas of focal increased or decreased uptake to suggest a focal nodule. The 25-hour uptake was measured at 7%, which is low (normal 24-hour uptake is 10 to 35%). IMPRESSION: Thyroid uptake at 25 hours was measured at 7%, which is low. The relative uptake between the right and left lobes is unremarkable and no focal areas of increased or decreased uptake are seen to suggest nodules. Reviewed, Interpreted and Dictated by Emiliano Londono III, MD Transcribed by Alondra Wright Authenticated and . [facility]
[2023-04-23] MEDS: ISOTOPE I 123;100 UCI TABLET 3 EACH PO (13:05)
== END 2023-04-23 23:59 ==
LOC: RAD 06:41
PROVIDERS: PCP Internal Medicine Adolescent Medicine; Visit Provider Internal Medicine Adolescent Medicine
DX: E05.90 Thyrotoxicosis, unspecified without thyrotoxic crisis or storm (principal)
CPT/HCPCS: 78014; A9516

== ENCOUNTER 2024-07-07 13:04 | Outpatient (CLI) | payer OTHER, SELFPAY ==
[2024-07-07 14:12] LABS: HCG,Quantitative 12813 mIU/ml (0-5.42)
[2024-07-08 11:17] LABS: Progesterone 10.1 ng/mL (.)
== END 2024-07-07 23:59 | disposition home or self-care (01) ==
LOC: LAB 13:06
PROVIDERS: PCP Internal Medicine Adolescent Medicine; Visit Provider Obstetrics & Gynecology
DX: Z32.00 Encounter for pregnancy test, result unknown (principal)
CPT/HCPCS: 36415; 84144; 84702

== ENCOUNTER 2024-08-09 09:03 | Outpatient (CLI) | payer OTHER, SELFPAY | END 2024-08-09 23:59 | disposition home or self-care (01) | PROVIDERS: PCP Internal Medicine Adolescent Medicine; Visit Provider Obstetrics & Gynecology | DX: O20.9 Hemorrhage in early pregnancy, unspecified (principal) | CPT/HCPCS: 36415; 84144; 84702 ==

== ENCOUNTER 2024-08-10 10:42 | Outpatient (CLI) | payer OTHER, SELFPAY ==
--- OUTSIDE RECORDS SUMMARY | 2024-05-14 17:30 | XMS_ITS ---
Author Organization [facility] Address [address] [place] [address] Care Team Providers Care Sales And Marketing Coordinator Name Role Phone Anjum Santana Primary Care Provider Anjum Santana Unavailable Unavailable Migration, Provider Unavailable Unavailable REASON FOR VISIT [facility] Conversion Encounter Medications Medication SIG (Take, [...] [address] [place] [address] 05/14/2024 Provider Migration Plan Of Treatment No Information Progress Notes * Tyler OAKLEYOB:[birth year] (29 yo F)Acc No.[id number]:05/14/2024 Patient: Shannon STANLEY Provider: Sita dunham Migration :1995 A ge:29 Y S ex:Female Date:05/14/2024 Address:[facility] [address] [place] Pcp:Anjum Santana Subjective: * Chief Complaints: * 1 . [facility] En[facility]. * Medical History: * Medications: [...] Treatment: * * Electronic signature of Prov estella Migration on 08/10/2024 at 10:46 AM EDT Sign off status: Pending * Provider: Sita dunham Migration Date: 0 05/14/2024 Generated for Kelsie clement/Janet/Stellaitting on: 0 08/10/2024 10:46 AM EDT
--- OUTSIDE RECORDS SUMMARY | 2024-08-10 10:47 | XMS_ITS | Patient Health Record ---
Author Organization [facility] Address [address] [facility] [address] [place] [address] Care Team Providers Care Help Desk Manager Name Role Phone Jimbo Aj Unavailable [phone] Allergies No Known Allergies Reason For Referral No Information Medications Medication SIG (Take, Route, Fr equency, Duration) Notes Start Date End Date Status Diflucan 150 MG Tablet 1 tablet Orally o nce. may repeat in 3 days if needed; Duration: 4 days 11/18/2021 Active Flagyl 500 TWICE A DAY ORAL; Du ration: 7 days 11/18/2021 Active Problems Problem Type SNOMED Code ICD Code Onset Dates Problem Status W/U Status Risk Notes Problem Postcoital bleeding (31725998) Postcoital and contact bleeding (N93.0) Active confirmed Problem (895761033) (O03.9) 021 Active confirmed Completed spontaneous Problem Noninflammatory disorder of the vagina (60623267) Bloody vaginal discharge (N89.8) 021 Active confirmed Vaginal irritation Plan Of Treatment No Information Insurance Providers Payer Name Payer Address Payer Phone Subscriber Number Group Number Insured Name Patient Relationship to Insured Coverage Start Date Coverage End Date [place] P[employer] [address] [place] [address] [id number] Shannon Zamudio Self - patient is the insured 2 Medical (General) History Medical History History ICD Code Yeast infection Surgical History Surgery Date(Month/Year) denies
--- OUTSIDE RECORDS SUMMARY | 2024-08-10 10:47 | XMS_ITS | Patient Health Record ---
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 Name Role Phone Anjum Santana Primary Care Provider [phone] Anjum Santana Unavailable Unavailable Radha Swain Unavailable [phone] Migration, Provider Unavailable Unavailable Allergies No Known Allergies Results Component Value Reference Range Notes CULTURE, AEROBIC AND ANAEROB IC W/GRAM STAIN (4446) Reviewed date:05/11/2024 11:01:17 AM Interpretation: Performing Lab:AMRITA, [facility] Gevf6538 [facility] Justo Sprague Notes/Report: NON-FASTING CULTURE, ANAEROBIC BACTERIA W/GRAM STAIN SEE NOTE CULTURE, ANAEROBIC BACTERIA W/GRAM STAIN Micro Number: [id number] Test Status: Final Specimen Source: Other (specify) Specimen Quality: Adequate Gram Stain: No organisms seen Result: No anaerobes isolated. CULTURE, AEROBIC BACTERIA SEE NOTE CULTURE, AEROBIC BACTERIA Micro Number: [id number] Test Status: Final Specimen Source: Finger Specimen Quality: Adequate Result: Light growth of Staphylococcus aureus Negative for inducible clindamycin resistance. S.aureus INT JIMI CIPROFLOXACIN S <=0.5 CLINDAMYCIN S <=0.25 ERYTHROMYCIN R >=8 GENTAMICIN S <=0.5 LEVOFLOXACIN S 0.25 MOXIFLOXACIN S <=0.25 OXACILLIN S 0.5 1 TETRACYCLINE S <=1 TRIMETHOPRIM/SULFA S <=10 VANCOMYCIN S 1 S = Susceptible I = Intermediate R = Resistant NS = Not susceptible SDD = Susceptible Dose Dependent * = Not Tested NR = Not Reported NN = See Therapy Comments THERAPY COMMENTS Note 1: Oxacillin susceptible staphylococci are susceptible to other penicillinase-stable penicillins (e.g., methicillin, nafcillin), beta- lactam/beta-lactamase inhibitor combinations, and cephems with staphylococcal indications, including cefazolin. CBC (INCLUDES DIFF/PLT) (639 9) Reviewed date:04/06/2024 09:00:15 PM Interpretation: Performing Lab:AMRITA [facility] [address], TalentClickBycyCB[address] Justo Sprague Notes/Report: NON-FASTING; NON-FASTING; NON-FASTING; NON-FASTING WHITE BLOOD CELL COUNT 5.0 3.8-10.8 Thousand/ uL RED BLOOD CELL COUNT 4.41 3.80-5.10 Million/uL HEMOGLOBIN 11.9 11.7-15.5 g/dL HEMATOCRIT 37.6 35.0-45.0 % MCV 85.3 80.0-100.0 fL MCH 27.0 27.0-33.0 pg MCHC 31.6 32.0-36.0 g/dL For adults, a slight decrease in the calculated MCHC value (in the range of 30 to 32 g/dL) is most likely not clinically significant; however, it should be interpreted with caution in correlation with other red cell parameters and the patient's clinical condition. RDW 12.7 11.0-15.0 % PLATELET COUNT 229 140-400 Thousand/uL MPV 10.7 7.5-12.5 fL ABSOLUTE NEUTROPHILS 2530 7346-6112 cells/uL ABSOLUTE LYMPHOCYTES 2005 850-3900 cells/uL ABSOLUTE MONOCYTES 375 200-950 cells/uL ABSOLUTE EOSINOPHILS 60 15-500 cells/uL ABSOLUTE BASOPHILS 30 0-200 cells/uL NEUTROPHILS 50.6 LYMPHOCYTES 40.1 MONOCYTES 7.5 EOSINOPHILS 1.2 BASOPHILS 0.6 MAGNESIUM (622) Reviewed date:04/06/2024 09:00:15 PM Interpretation: Performing Lab:AMRITA [facility] [address], TalentClickOupoYV[address] Justo Sprague Notes/Report: NON-FASTING; NON-FASTING; NON-FASTING; NON-FASTING MAGNESIUM 2.1 1.5-2.5 mg/dL COMPREHENSIVE METABOLIC PANE L (32075) Reviewed date:04/06/2024 09:00:15 PM Interpretation: Performing Lab:AMRITA [facility] Hospitale1355 [facility] CenterZimoryPhoenixville Hospital[address] Justo Sprague Notes/Report: NON-FASTING; NON-FASTING; NON-FASTING; NON-FASTING GLUCOSE 84 65-99 mg/dL Fasting reference interval UREA NITROGEN (BUN) 10 7-25 mg/dL CREATININE 0.75 0.50-0.96 mg/dL EGFR 111 > OR = 60 mL/min/1.73m2 BUN/CREATININE RATIO SEE NOTE: 6-22 (calc) Not Reported: BUN and Creatinine are within reference range. SODIUM 138 135-146 mmol/L POTASSIUM 3.9 3.5-5.3 mmol/L CHLORIDE 106 98-110 mmol/L CARBON DIOXIDE 22 20-32 mmol/L CALCIUM 9.0 8.6-10.2 mg/dL PROTEIN, TOTAL 7.2 6.1-8.1 g/dL ALBUMIN 4.6 3.6-5.1 g/dL GLOBULIN 2.6 1.9-3.7 g/dL (calc) ALBUMIN/GLOBULIN RATIO 1.8 1.0-2.5 (calc) BILIRUBIN, TOTAL 0.3 0.2-1.2 mg/dL ALKALINE PHOSPHATASE 51 31-125 U/L AST 17 10-30 U/L ALT 11 6-29 U/L THYROID PANEL WITH TSH (7444 ) Reviewed date:04/06/2024 09:00:15 PM Interpretation: Performing Lab:AMRITA [facility] Bhvr5442 Responde AiPhoenixville Hospital[address] Justo Sprague Notes/Report: NON-FASTING; NON-FASTING; NON-FASTING; NON-FASTING T3 UPTAKE 34 22-35 % T4 (THYROXINE), TOTAL 7.9 5.1-11.9 mcg/dL FREE T4 INDEX (T7) 2.7 1.4-3.8 TSH 1.84 Reference Range > or = 20 Years 0.40-4.50 Ranges First trimester 0.26-2.66 Second trimester 0.55-2.73 Third trimester 0.43-2.91 THYROID PANEL WITH TSH (7444 ) Reviewed date:09/21/2023 12:32:45 PM Interpretation: Performing Lab:AMRITA, [facility] [id number], SpaBoomHirtWL[address] Justo Sprague Notes/Report: NON-FASTING; NON-FASTING; NON-FASTING T3 UPTAKE 32 22-35 % T4 (THYROXINE), TOTAL 7.7 5.1-11.9 mcg/dL FREE T4 INDEX (T7) 2.5 1.4-3.8 TSH 3.62 Reference Range > or = 20 Years 0.40-4.50 Ranges First trimester 0.26-2.66 Second trimester 0.55-2.73 Third trimester 0.43-2.91 COMPREHENSIVE METABOLIC PANE L (12206) Reviewed date:09/21/2023 12:32:45 PM Interpretation: Performing Lab:AMRITA, [employer], SpaBoomQqdbBT[address] Justo Sprague Notes/Report: NON-FASTING; NON-FASTING; NON-FASTING GLUCOSE 84 65-99 mg/dL Fasting reference interval UREA NITROGEN (BUN) 12 7-25 mg/dL CREATININE 0.72 0.50-0.96 mg/dL EGFR 117 > OR = 60 mL/min/1.73m2 BUN/CREATININE RATIO SEE NOTE: 6-22 (calc) Not Reported: BUN and Creatinine are within reference range. SODIUM 139 135-146 mmol/L POTASSIUM 4.0 3.5-5.3 mmol/L CHLORIDE 104 98-110 mmol/L CARBON DIOXIDE 25 20-32 mmol/L CALCIUM 9.5 8.6-10.2 mg/dL PROTEIN, TOTAL 7.1 6.1-8.1 g/dL ALBUMIN 4.4 3.6-5.1 g/dL GLOBULIN 2.7 1.9-3.7 g/dL (calc) ALBUMIN/GLOBULIN RATIO 1.6 1.0-2.5 (calc) BILIRUBIN, TOTAL 0.4 0.2-1.2 mg/dL ALKALINE PHOSPHATASE 54 31-125 U/L AST 17 10-30 U/L ALT 8 6-29 U/L CBC (INCLUDES DIFF/PLT) (639 9) Reviewed date:09/21/2023 12:32:45 PM Interpretation: Performing Lab:AMRITA [employer] DessertstePhoenixville Hospital[address] Justo Sprague Notes/Report: NON-FASTING; NON-FASTING; NON-FASTING WHITE BLOOD CELL COUNT 5.2 3.8-10.8 Thousand/ uL RED BLOOD CELL COUNT 4.33 3.80-5.10 Million/uL HEMOGLOBIN 12.5 11.7-15.5 g/dL HEMATOCRIT 38.6 35.0-45.0 % MCV 89.1 80.0-100.0 fL MCH 28.9 27.0-33.0 pg MCHC 32.4 32.0-36.0 g/dL RDW 11.5 11.0-15.0 % PLATELET COUNT 232 140-400 Thousand/uL MPV 10.0 7.5-12.5 fL ABSOLUTE NEUTROPHILS 3037 0223-8040 cells/uL ABSOLUTE LYMPHOCYTES 5331 270-5395 cells/uL ABSOLUTE MONOCYTES 499 200-950 cells/uL ABSOLUTE EOSINOPHILS 57 15-500 cells/uL ABSOLUTE BASOPHILS 21 0-200 cells/uL NEUTROPHILS 58.4 LYMPHOCYTES 30.5 MONOCYTES 9.6 EOSINOPHILS 1.1 BASOPHILS 0.4 Reason For Referral No Information Medications Medication SIG (Take, Route, Frequency, Duration) [...] once a day; Duration: 90 days Active Social History Tobacco Use: Social History Observation Description Date Details (start date - stop date) Never Smoker NA - NA Smoking: Question Answer Notes Are you a: nonsmoker Problems Problem Type SNOMED Code ICD Code Onset Dates Problem Status W/U Status Risk Notes Problem Menorrhagia with irregular cycle (N92.1) Active confirmed Problem Goiter (6694785) Goiter (E04.9) Active confirme d Problem Acquired hypothyroidism (196345446) Acquired hypothyroidism (E03.9) Active confirmed Problem Hyperthyroidism (55965011) Hyperthyroidism (E05.90) Active confirmed Vital Signs Heart Rate 88 /min 05/10/2024 Temperature 98 degrees Fahrenheit 05/10/2024 Blood pressure diastolic 78 mm Hg 05/10/2024 Height 62 in 05/10/2024 Blood pressure systolic 120 mm Hg 05/10/2024 Weight 111 lbs 05/10/2024 BMI 20.3 kg/m2 05/10/2024 Encounters Encounter Location Date Provider Diagnosis [place] [facility] [address] [facility] [address] [facility] [address] [place], [place] [address] 05/14/2024 Provider Migration [facility] [address] [address] 09/17/2023 Anjum Santana Hyperthyroidism E05. 90 ; Menorrhagia with irregular cycle N92.1 and Routine medical exam Z00.[address] [place] [facility] [address] [address] 12/17/2023 Anjum Santana Hyperthyroidism E05. [address] [place] [address] [address] 04/07/2024 Anjum Santana Acquired hypothyroid ism E03.[address] [place] [address] [address] 05/05/2024 Radha Swain Paronychia of finger of right hand L03.[address] [place] [address] [address] 05/10/2024 Anjum Santana Paronychia of finger of right hand L03.011 [place] [facility] NATTY [address] [facility] [address] [place], [place] [address] 05/09/2024 Anjumluly Santana Assessments Encounter Date Diagnosis (ICD Code) Assessment Notes Treatment Notes Treatment Clinical Notes Section Notes 09/17/2023 Menorrhagia with irregular cycle (ICD-10 - N92.1) Overall seems to be stabilizing post . 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 Will get CBC to make sure she does not have excessive bleeding. Does not appear to be anemic on clinical exam. 09/17/2023 Hyperthyroidism (ICD-10 - E05.90) Patient appears clinically euthyroid and feels good. Check thyroid panel. She will get this done tomorrow. Very interesting case given significant autoimmune hyperthyroidism and then a quick burnout with now hypothyroidism. Will follow up with any medication changes as needed. Please note I will review all labs personally 12/17/2023 Hyperthyroidism (ICD-10 - E05.90) Thyroid profile was normal in September. Including T4 and T3. Plan will be to continue low-dose Synthroid replacement. I will see her in 3 months at a 6-month interval from her recent thyroid panel and we will do labs in preparation for that visit the week before. 04/07/2024 Acquired hypothyroidism (ICD-10 - E03.9) I had ordered labs 3 days ago, they have returned, reviewed these personally with patient. T4 is 8, TSH also normal. Patient appears clinically euthyroid. No goiter today. This is resolved. No changes in Synthroid dosing. She is planning on contemplating and if she becomes she will come back and we will redo labs earlier but otherwise I can see her in 6 months. 05/05/2024 Paronychia of finger of right hand (ICD-10 - L03.011) Right lateral aspect of posterior index finger with yellow/white purulent discharge just under skin unable to express with pinching so placed a very superficial tiny hole just into superficial dermis in area of obvious collection of pus under skin with 20 g needle after alcohol then betadine cleansing and cooling spray used for numbing. Purulent discharge expressed out to completion, no bloody discharge or bleeding, sent wound culture. I personally will review wound culture results once final. Reviewed s/s of worsening infection warranting urgent evaluation. No DIP joint involvement at this time. Start Amox-Clav prescribed above to provide anaerobic coverage with oral biting. Topical mupirocin prescribed. Discussed epsom salt soaks bid and to wear coverage when changing her child's diapers. Follow-up prn. 05/10/2024 Paronychia of finger of right hand (ICD-10 - L03.011) Reviewed culture with patient showing MSSA. Has finished 5 days of Augmentin. I do not think she needs further antibiotics. Use mupirocin and keep finger uncovered, stop soaking given the maceration. 09/17/2023 Routine medical exam (ICD-10 - Z00.00) No indication for early breast or colon cancer screening. Healthy lifestyle, no smoking, alcohol, appropriate use of seatbelts and safe lifestyle, no illicit drug use. And stable relationship. Up-to-date with needed vaccinations for her age group Plan Of Treatment Pending Test Test Name Order Date M-Thyroid Panel 03/06/2023 G-Ewdo-Mjzjnicxigski Antibody 03/06/2023 M-Vitamin B12 03/05/2023 M-Thyroid Peroxidase Antibodies 03/06/19 Insurance Providers Payer Name Payer Address Payer Phone Subscriber Number Group Number Insured Name Patient Relationship to Insured Coverage Start Date Coverage End Date [facility] [id number] [place] [address] [id number] Shannon Zamudio Self - patient is the insured Medical (General) History Surgical History Surgery Date(Month/Year) wisdom tooth removal Hospitalization History Reason Date(Month/Year) child
[2024-08-10] MEDS: RHO(D) IMMUNE GLOBULIN 1,500 UNIT (300MCG) SYRINGE 300 MCG IM (11:03)
[2024-08-10 11:05] VITALS: BP 108/74; PULSE 95; RESP 18; O2SAT 100
== END 2024-08-10 11:05 | disposition home or self-care (01) ==
LOC: INF 10:43
PROVIDERS: PCP Internal Medicine Adolescent Medicine; Visit Provider Obstetrics & Gynecology
DX: O20.9 Hemorrhage in early pregnancy, unspecified (principal); Z3A.00 Weeks of gestation of pregnancy not specified
CPT/HCPCS: 36415; 96372; J2790

== ENCOUNTER 2024-08-16 10:42 | Outpatient (CLI) | payer OTHER, SELFPAY ==
--- OUTSIDE RECORDS SUMMARY | 2024-05-14 17:30 | XMS_ITS ---
Author Organization [facility] Address [address] [place] [address] Care Team Providers Care Page Designer Name Role Phone Anjum Santana Primary Care Provider Anjum Santana Unavailable Unavailable Migration, Provider Unavailable Unavailable REASON FOR VISIT [facility] Conversion Encounter Medications Medication SIG (Take, [...] [address] [place] [address] 05/14/2024 Provider Migration Plan Of Treatment No Information Progress Notes * Tyler OAKLEYOB:[birth year] (29 yo F)Acc No.[id number]:05/14/2024 Patient: Shnanon STANLEY Provider: Sita dunham Migration :1995 A ge:29 Y S ex:Female Date:05/14/2024 Address:[facility] [address] [id number] Pcp:Anjum Santana Subjective: * Chief Complaints: * [facility] . [facility] * Medical History: * [...] Electronic signature of Prov estella Migration on 08/16/2024 at 10:44 AM EDT Sign off status: Pending * Provider: Sita dunham Migration Date: 0 05/14/2024 Generated for Kelsie clement/Janet/Stellaitting on: 0 08/16/2024 10:44 AM EDT
--- OUTSIDE RECORDS SUMMARY | 2024-08-16 10:44 | XMS_ITS | Patient Health Record ---
Author Organization [facility] Address [address] [facility] [address] [place] [address] Care Team Providers Care Oil Distributor Tender Name Role Phone Jimbo Aj Unavailable [phone] Allergies No Known Allergies Reason For Referral [...] W/U Status Risk Notes Problem Postcoital bleeding (54355874) Postcoital and contact bleeding (N93.0) Active confirmed Problem (951038618) (O03.9) 021 Active confirmed Completed spontaneous Problem Noninflammatory disorder of the vagina (26223523) Bloody vaginal discharge (N89.8) 021 Active confirmed Vaginal irritation Plan Of Treatment No Information Insurance Providers Payer Name Payer Address Payer Phone Subscriber Number Group Number Insured Name Patient Relationship to Insured Coverage Start Date Coverage End Date [employer] P[employer] [address] [place] [address] [id number] Shannon Zamudio Self - patient is the insured 2 Medical (General) History Medical History History ICD Code Yeast infection Surgical History Surgery Date(Month/Year) denies
--- OUTSIDE RECORDS SUMMARY | 2024-08-16 10:45 | XMS_ITS | Patient Health Record ---
Author Organization [facility] Address [address] [place] [address] Care Team Providers Care President & Founder Name Role Phone Anjum Santana Primary Care Provider Anjum Santana Unavailable Unavailable Radha Swain Unavailable [phone] Migration, Provider Unavailable Unavailable Allergies No Known Allergies Results Component Value Reference Range Notes CULTURE, AEROBIC AND ANAEROB IC W/GRAM STAIN (4446) Reviewed date:05/11/2024 11:01:17 AM Interpretation: Performing Lab:AMRITA, [facility] Kirn[address]18 [facility] Justo Sprague Notes/Report: NON-FASTING CULTURE, ANAEROBIC BACTERIA W/GRAM STAIN SEE NOTE CULTURE, ANAEROBIC BACTERIA W/GRAM STAIN Micro Number: [id number] Test Status: Final Specimen Source: Other (specify) Specimen Quality: Adequate Gram Stain: No organisms seen Result: No anaerobes isolated. CULTURE, AEROBIC BACTERIA SEE NOTE CULTURE, AEROBIC BACTERIA Micro Number: [id number] Test Status: Final Specimen Source: Finger Specimen [...] and cephems with staphylococcal indications, including cefazolin. THYROID PANEL WITH TSH (7444 ) Reviewed date:04/06/2024 09:00:15 PM Interpretation: Performing Lab:AMRITA, goCatch-Appointedd [address], [facility] ServicesLbxgFC[address] Justo Sprague Notes/Report: NON-FASTING; NON-FASTING; NON-FASTING; NON-FASTING T3 UPTAKE 34 22-35 % T4 (THYROXINE), TOTAL 7.9 5.1-11.9 mcg/dL FREE T4 INDEX (T7) 2.7 1.4-3.8 TSH 1.84 Reference Range > or = 20 Years 0.40-4.50 Ranges First trimester 0.26-2.66 Second trimester 0.55-2.73 Third trimester 0.43-2.91 THYROID PANEL WITH TSH (7444 ) Reviewed date:09/21/2023 12:32:45 PM Interpretation: Performing Lab:AMRITA goCatch-Spindlee[address], [facility] Rad[facility] ServicesQmmvCF[address] Justo Sprague Notes/Report: NON-FASTING; NON-FASTING; NON-FASTING T3 UPTAKE 32 22-35 % T4 (THYROXINE), TOTAL 7.7 5.1-11.9 mcg/dL FREE T4 INDEX (T7) 2.5 1.4-3.8 TSH 3.62 Reference Range > or = 20 Years 0.40-4.50 Ranges First trimester 0.26-2.66 Second trimester 0.55-2.73 Third trimester 0.43-2.91 COMPREHENSIVE METABOLIC PANE L (03157) Reviewed date:09/21/2023 12:32:45 PM Interpretation: Performing Lab:AMRITA [address], [facility] Radiology ServicesXmkkKZ[address] Justo Sprague Notes/Report: NON-FASTING; NON-FASTING; NON-FASTING GLUCOSE 84 65-99 mg/dL Fasting reference interval UREA NITROGEN (BUN) 12 7-25 mg/dL CREATININE 0.72 0.50-0.96 mg/dL EGFR 117 > OR = 60 mL/min/1.73m2 BUN/CREATININE RATIO SEE NOTE: 6- (calc) Not Reported: BUN and Creatinine are [...] 17 10-30 U/L ALT 8 6-29 U/L COMPREHENSIVE METABOLIC PANE L (62819) Reviewed date:04/06/2024 09:00:15 PM Interpretation: Performing Lab:CB, [facility] [address], [facility] HospitalIdhoLK[address] Justo Sprague Notes/Report: NON-FASTING; NON-FASTING; NON-FASTING; NON-FASTING GLUCOSE 84 65-99 mg/dL Fasting reference interval UREA NITROGEN (BUN) 10 7-25 mg/dL CREATININE 0.75 0.50-0.96 mg/dL EGFR 111 > OR = 60 mL/min/1.73m2 BUN/CREATININE RATIO SEE NOTE: 6- (calc) Not Reported: BUN and Creatinine are [...] 17 10-30 U/L ALT 11 6-29 U/L MAGNESIUM (622) Reviewed date:04/06/2024 09:00:15 PM Interpretation: Performing Lab:AMRITA goCatch-Appointedd [address]pgf[address] [facility], [facility] HospitalVjuaCI[address] Justo Sprague Notes/Report: NON-FASTING; NON-FASTING; NON-FASTING; NON-FASTING MAGNESIUM 2.1 1.5-2.5 mg/dL CBC (INCLUDES DIFF/PLT) (639 9) Reviewed date:09/21/2023 12:32:45 PM Interpretation: Performing Lab:AMRITA goCatch-Appointedd [address] [facility], Gl[facility] Ridge HospitalNtpfSX[address] Justo Sprague Notes/Report: NON-FASTING; NON-FASTING; NON-FASTING WHITE BLOOD CELL COUNT 5.2 3.8-10.8 Thousand/ uL RED BLOOD CELL COUNT 4.33 3.80-5.10 Million/uL HEMOGLOBIN 12.5 11.7-15.5 g/dL HEMATOCRIT 38.6 35.0-45.0 % MCV 89.1 80.0-100.0 fL MCH 28.9 27.0-33.0 pg MCHC 32.4 32.0-36.0 g/dL RDW 11.5 11.0-15.0 % PLATELET COUNT 232 140-400 Thousand/uL MPV 10.0 7.5-12.5 fL ABSOLUTE NEUTROPHILS 3037 1217-0895 cells/uL ABSOLUTE LYMPHOCYTES 7506 309-9033 cells/uL ABSOLUTE MONOCYTES 499 200-950 cells/uL ABSOLUTE EOSINOPHILS 57 15-500 cells/uL ABSOLUTE BASOPHILS 21 0-200 cells/uL NEUTROPHILS 58.4 LYMPHOCYTES 30.5 MONOCYTES 9.6 EOSINOPHILS 1.1 BASOPHILS 0.4 CBC (INCLUDES DIFF/PLT) (789 9) Reviewed date:04/06/2024 09:00:15 PM Interpretation: Performing Lab:AMRITA goCatch-Appointedd [address], Gl[facility] Ridge HospitalQzbzMR[address] Justo Sprague Notes/Report: NON-FASTING; NON-FASTING; NON-FASTING; NON-FASTING [...] MPV 10.7 7.5-12.5 fL ABSOLUTE NEUTROPHILS 2530 2204-3037 cells/uL ABSOLUTE LYMPHOCYTES 2005 850-3900 cells/uL ABSOLUTE MONOCYTES 375 200-950 cells/uL ABSOLUTE EOSINOPHILS 60 15-500 cells/uL ABSOLUTE BASOPHILS 30 0-200 cells/uL NEUTROPHILS 50.6 LYMPHOCYTES 40.1 MONOCYTES 7.5 EOSINOPHILS 1.2 BASOPHILS 0.6 Reason For Referral No Information Medications Medication [...] Problem Status W/U Status Risk Notes Problem Intermenstrual bleeding - irregular (50695023) Menorrhagia with irregular cycle (N92.1) Active confirmed Problem Goiter (8558717) Goiter (E04.9) Active confirme d Problem Acquired hypothyroidism (186521045) Acquired hypothyroidism (E03.9) Active confirmed Problem Hyperthyroidism (55775213) Hyperthyroidism (E05.90) Active confirmed Vital Signs Heart Rate 88 /min 05/10/2024 Temperature 98 degrees Fahrenheit 05/10/2024 Blood pressure diastolic 78 mm Hg 05/10/2024 Height 62 in 05/10/2024 Blood pressure systolic 120 mm Hg 05/10/2024 Weight 111 lbs 05/10/2024 BMI 20.3 kg/m2 05/10/2024 Encounters Encounter Location Date Provider Diagnosis [facility] [address] [facility] [address] [facility] [address] [place] [address] 05/14/2024 [facility] [address] [address] 09/17/2023 Anjum Santana Hyperthyroidism E05. 90 ; Menorrhagia with irregular cycle N92.1 and Routine medical exam Z00.00 [facility] [address] [address] 12/17/2023 Anjum Santana Hyperthyroidism E05. 90 [place] [address] [address] 04/07/2024 Anjum Santana Acquired hypothyroid ism E03.9 [facility] [address] [address] 05/05/2024 Radha Swain Paronychia of finger of right hand L03.011 [place] [facility] [address] [address] 05/10/2024 Anjum Santana Paronychia of finger of right hand L03.011 [facility] [address] [facility] [address] [place] [address] 05/09/2024 Anjumluly Santana Assessments Encounter Date Diagnosis (ICD Code) Assessment Notes Treatment Notes Treatment Clinical Notes Section Notes 09/17/2023 Menorrhagia with irregular cycle (ICD-10 - N92.1) Overall seems to be stabilizing post . 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 Will get CBC to make sure she [...] Test Name Order Date M-Thyroid Panel 03/06/2023 T-Vjew-Vjyuustgxenvz Antibody 03/06/2023 M-Vitamin B12 03/05/2023 M-Thyroid Peroxidase Antibodies 03/06/19 Insurance Providers Payer Name Payer Address Payer Phone Subscriber Number Group Number Insured Name Patient Relationship to Insured Coverage Start Date Coverage End Date [facility] [address] [place] [address] [id number] Shannon Zamudio Self - patient is the insured Medical (General) History Surgical History Surgery Date(Month/Year) wisdom tooth removal Hospitalization History Reason Date(Month/Year) child
== END 2024-08-16 23:59 | disposition home or self-care (01) ==
LOC: LAB 10:43
PROVIDERS: PCP Internal Medicine Adolescent Medicine; Visit Provider Obstetrics & Gynecology
DX: O02.89 Other abnormal products of conception (principal); O03.9 Complete or unspecified spontaneous abortion without complication
CPT/HCPCS: 36415; 84702

== ENCOUNTER 2024-12-10 11:20 | Outpatient (CLI) | payer OTHER, SELFPAY ==
--- OUTSIDE RECORDS SUMMARY | 2024-03-22 07:30 | XMS_ITS ---
Author Organization [facility] PE D NATTY Address [address] [place] [address] Care Team Providers Care Saw Handle Assembler Name Role Phone Anjum Santana Primary Care Provider [phone] Anjum Santana Unavailable Unavailable REASON FOR VISIT med ck Encounters Encounter Location Date Provider Diagnosis [address] [address] 03/22/2024 Anjum Santana Plan Of Treatment No Information Progress Notes * Tyler OAKLEYOB:[birth year] (29 yo F)Acc No.[id number]:03/22/2024 Progress Notes Patient: Gale STANLEYabel Provider: Jordi Santana MD :1995 A ge:28 Y S ex:Female Date:03/22/2024 [facility] Subjective: * Chief Complaints: * 1 . Med ck. * Medical History: Objective: * Vitals: Assessment: Plan: * Treatment: * * Electronic signature of Mick Santana MD FAAP on 12/10/2024 at 11:30 AM EDT Sign off status: Pending * Provider: Jordi Santana MD Date: 0 03/22/2024 Generated for Printi ng/Faxing/eTransmitting on: 1 02/10/2024 11:30 AM EDT
--- OUTSIDE RECORDS SUMMARY | 2024-05-14 17:30 | XMS_ITS ---
Author Organization [facility] Address [address] [place] [address] Care Team Providers Care Right Of Way Agent Name Role Phone Anjum Santana Primary Care Provider Anjum Santana Unavailable Unavailable Migration, Provider Unavailable Unavailable REASON FOR VISIT [facility] Conversion Encounter Medications Medication SIG (Take, Route, [...] [address] [place] [address] 05/14/2024 Provider Migration Plan Of Treatment No Information Progress Notes * Tyler OAKLEYOB:[birth year] (29 yo F)Acc No.[id number]:05/14/2024 Patient: Shannon STANLEY Provider: Sita dunham Migration :1995 A ge:29 Y S ex:Female Date:05/14/2024 Address:[facility] [address], [id number] Pcp:Anjum Santana Subjective: * Chief Complaints: * [facility] . [facility] * Medical History: * Medications: [...] Electronic signature of Prov estella Migration on 12/10/2024 at 11:30 AM EDT Sign off status: Pending * Provider: Sita dunham Migration Date: 0 05/14/2024 Generated for Kelsie clement/Janet/Stellaitting on: 1 02/10/2024 11:30 AM EDT
--- OUTSIDE RECORDS SUMMARY | 2024-10-14 10:15 | XMS_ITS ---
Author Organization [facility] PE D NATTY Address [address] [place] [address] Care Team Providers Care Sales Representative Sales Manager Name Role Phone Anjum Santana Primary Care Provider Anjum Santana Unavailable Unavailable Allergies No Known Allergies Reason For Referral Reason MRI right shoulder-3 weeks of pain after acute injury-see note-first available location-[facility] Diagnosis 1 Rotator cuff syndrom e of right shoulder (M75.101) Referral Organization [facility] JAVIER LUZ Referring Provider First Name Anjum Referring Provider Last Name Max Referring Provider Speciality Internal M edicine Referred Organization [facility]- [facility] MRI Referred Address [address] [place] [id number], Referred Provider Specialty Diagnostic R adiology General Notes Tanja Grant 2024 03:12:00 PM >sent to [facility], [facility] and [facility]- Spoke with patient about all 3 Referral Priority Urgent Referral Appointment Date 10/18/2024 REASON FOR VISIT Rt shoulder blade pain for 2 wks - no muscle in RT arm to open fridge Medications Medication SIG (Take, Route, Fr equency, Duration) Notes Start Date End Date Status Synthroid 50 MCG 1 tab(s) orally once a day; Duration: 90 days Active Diclofenac Sodium 75 MG 1 tab(s) orally 2 times a day for seven days, then twice daily as needed; Duration: 30 day(s) 10/14/2024 Active Problems Problem Type SNOMED Code ICD Code Onset Dates Problem Status W/U Status Risk Notes Problem Rupture of right rotator cuff ([id number]) Rotator cuff syndrome of right shoulder (M75.101) Active confirmed Vital Signs Temperature 97.9 degrees Fahrenheit 10/15/19 25 Blood pressure systolic 102 mm Hg 10/15/19 25 Blood pressure diastolic 74 mm Hg 025 Heart Rate 84 /min 10/14/2024 Height 62 in 10/14/2024 Weight 115 lbs 10/14/2024 BMI 21.03 kg/m2 10/14/2024 Encounters Encounter Location Date Provider Diagnosis [address] [address] 10/14/2024 Anjum Santana Rotator cuff syndrome of right shoulder M75.101 and Acute right-sided thoracic back pain M54.6 Assessments Encounter Date Diagnosis (ICD Code) Assessment Notes Treatment Notes Treatment Clinical Notes Section Notes 10/14/2024 Rotator cuff syndrome of right shoulder (ICD-10 - M75.101) Will start with MRI of shoulder. Possible rotator cuff tear. However I think she may have done something to the scalene muscles but we will check the MRI of the shoulder first and then make Ortho referral as needed. 10/14/2024 Acute right-sided thoracic back pain (ICD-10 - M54.6) Plan Of Treatment Medication Medication Name Sig Start Date Stop Date Notes Diclofenac Sodium 75 MG 1 tab(s) orally 2 times a day for seven days, then twice daily as needed; Duration: 30 day(s) 10/14/2024 Treatment Notes Assessment Notes Rotator cuff syndrome of right shoulder Will start with MRI of shoulder. Possible rotator cuff tear. However I think she may have done something to the scalene muscles but we will check the MRI of the shoulder first and then make Ortho referral as needed. Pending Test Test Name Order Date MRI : Shoulder, Right 10/14/2024 Referrals Referral Date Details 10/14/2024 10/14/2024, MRI righ t shoulder-3 weeks of pain after acute injury-see note-first available location-[facility], [facility] [address] , [place], [address], Next Appt Details Follow Up: prn, Reason: Progress Notes * Sravan OAKLEY:[birth year] (29 yo F)Acc No.[id number]:10/14/2024 Progress Notes Patient: Shannon STANLEY Provider: Jordi Santana MD :1995 A ge:29 Y S ex:Female Date:10/14/2024 Address:[facility] [place], [place] Subjective: * Chief Complaints: * 1 . Rt shoulder blade pain for 2 wks - no muscle in RT arm to open fridge. * HPI: g en: About 6 days ago was with her 2-year-old son in the swimming pool and he was repetitively jumping into her arms from the side of the pool. After about 15 minutes she felt a sharp pain below her right scapula. Since that time things have worsened, she has been unable to open her fridge door and has been unable to abduct her elbow to get things off of her countertops. She thinks her scapula looks abnormal. * Medical History: M edical History Verified. * Medications: T aking Synthroid 50 MCG Tablet 1 tab(s) orally once a day , Discontinued Nitrofurantoin Monohyd Macro 100 MG Capsule 1 capsule with food Orally every 12 hrs , Discontinued Pyridium 100 MG Tablet as directed Orally Three times a day Take 1- 2 tablets after meals., Medication List reviewed and reconciled with the patient * Allergies: N .K.D.A. Objective: * Vitals: N urse: dw, Pain: 8, Temp: 97.9, RR: 16, HR: 84, BP: 102/74, Ht: 62, Wt: 115, BMI:21.03. * Examination: G eneral Examination: A nterior shoulder looks good, elbow structure is normal. She can abduct straight away from the chest with her right arm, but her scapula is certainly winged out and has significant pain with movement of the scapula. Cannot rotate/circumduct her arm behind her back away from her chest. Assessment: * Assessment: 1. R otator cuff syndrome of right shoulder - M75.101 (Primary) 2 . A cute right-sided thoracic back pain - M54.6 Plan: * Treatment: * Notes: Will start with MRI of shoulder. Possible rotator cuff tear. However I think she may have done something to the scalene muscles but we will check the MRI of theshoulder first and then make Ortho referral as needed.? Referral To:Diagnostic Radiology ?Reason:MRI right shoulder-3 weeks of pain after acute injury-see note-first available location-[place] [place] 2.?Acute right-sided thoracic back pain? Start Diclofenac Sodium Tablet Delayed Release, 75 MG, 1 tab(s), orally, 2 times a day for seven days, then twice daily as needed, 30 day(s), 45, Refills 2.?? * Follow Up: p rn * * Sign off status: Completed true * Provider: Jordi Santana MD Date: 0 10/14/2024 Generated for Kelsie clement/Janet/eTransmitting on: 1 02/10/2024 11:30 AM EDT History and Physical Notes * HPI (History of Present Illness) Category Sub-Category Detail Notes Category Not es gen About 6 days ago was with her 2-year-old son in the swimming pool and he was repetitively jumping into her arms from the side of the pool. After about 15 minutes she felt a sharp pain below her right scapula. Since that time things have worsened, she has been unable to open her fridge door and has been unable to abduct her elbow to get things off of her countertops. She thinks her scapula looks abnormal. Examination Category Sub-Category Detail Notes Category Not es General Examination Anterior shoulder looks good, elbow structure is normal. She can abduct straight away from the chest with her right arm, but her scapula is certainly winged out and has significant pain with movement of the scapula. Cannot rotate/circumduct her arm behind her back away from her chest. Consultation Request Notes Referral Date Referring Provider Referred Provider Not candi 10/14/2024 Anjum Santana , MRI right sh oulder-3 weeks of pain after acute injury-see note-first available location-[facility] [place]
--- OUTSIDE RECORDS SUMMARY | 2024-10-20 07:58 | XMS_ITS | Continuity of Care Document ---
Author Organization [facility] Phone Care Team Providers Care Galley Stripper Name Role Phone HARESH CROWLEY Primary Attending [phone] HARESH CROWLEY Admitting HARESH CROWLEY Unavailable HARESH CROWLEY Primary Care RESULTS Patient: ADIN CASEY Date of : April [birth year] LABORATORY RESULTS Information is not available LABORATORY NARRATIVE RESULTS Information is not available RADIOLOGY RESULTS ORDER 100: MRI EXTREM UPR CAREY INT RT WO (LOINC: 18269-4) ORDER DATE: October 18, 2024 4:44:00 PM [facility] PERFORMING LAB: [address] [id number] Final Result Date: October 18, 2024 6:09:[address] [place] [address] Name: CASSIDY OAKLEY Exam Date: 10/18/2024 : 1995 Age 29 years Gender: F Physician: HARESH CROWLEY Facility: [facility] Facility HSV: Outpatient Exam: MRI EXTREM UPR JOINT RT WO MRI right shoulder HISTORY: Pain 1 month COMPARISON: None TECHNIQUE: Various axial coronal and sagittal scans of the shoulder performed. FINDINGS: Intact glenoid labrum. No significant joint effusion. Normal signal in the bone marrow. Slight degenerative changes in the a.c. and elbow joint. Biceps tendon appears intact. There is no acute fracture or dislocation. AC joint intact. No significant impingement detected. The supraspinatus, subscapularis, infraspinatus and teres minor tendons appear intact. There is no soft tissue mass or focal fluid collection. No significant bursal inflammation. Glenohumeral ligaments appear intact. IMPRESSION: Unremarkable MRI shoulder Electronically signed by: Ras Julio MD 10/18/2024 03:20 PM EDT RP Dictated By: RAS JULIO Transcribed By: Transcribed On: 10/18/2024 2:09 PM Electronically signed by: RAS JULIO 10/18/2024 Thank you for referring CASSIDY OAKLEY to [facility]. Legally authenticated by NORI MCGINNIS MD 2024-10-18 14:09:19 PATHOLOGY NARRATIVE RESULTS Information is not available MICROBIOLOGY RESULTS No Micro Labs/Results Exist for Patient BLOOD ADMIN RESULTS Information is not available MEDICATIONS HOME MEDICATIONS Status RXNORM NDC Medication Dose Route Frequency Dates Comments Reported By Updated By Drug Treatment Unknown DISCHARGE MEDICATIONS Status RXNORM NDC Medication Dose Route Frequency Dates Dis pense Data Comments Physician Updated By No Discharge Medication Info rmation Available INPATIENT MEDICATIONS Status RXNORM NDC Medication Dose Route Frequency Rat e Quantity Dates Indication Dispense Data Comments Physician Updated By No Inpatient Medication Info rmation Available SOCIAL HISTORY SOCIAL HISTORY - Smoking Status SNOMED-CT Social History Element Description Effective Dates Offered Cessation Comment Updated By [id number] Smoking Status Unknown If Ever Smoked SOCIAL HISTORY - Gender Sex: Female SOCIAL HISTORY - Status : status i nformation is not available Intention in Next Year: intention information is not available SOCIAL HISTORY - Assessments Code System Description Status Date Value of Assessment Updated By Comment Assessment Information is no t available SOCIAL HISTORY - [place] Affiliation [place] information is not av ailable SOCIAL HISTORY - Legal Sex Legal Sex information is not available SOCIAL HISTORY - Sexual Behavior Sexual Orientation Gender Identity SNOMED-CT Description SNO MED -CT Description Activity Level No of Partners Partner Type UpdatedBy Information is not available SOCIAL HISTORY - Occupation Occupation information is no t available HEALTH CONCERNS Problems Concern Status Health Concern problem infor mation not available. Smoking Status Status Years Used Consumed packs p er day Health Concern smoking histo ry information not available. Family History Concern Status Health Concern family histor y information not available. ENCOUNTERS ENCOUNTER INFORMATION Reason for Visit Not Specified Admission October 18, 2024 4:27:[address] PM [place] [address] [address] Discharge October 18, 2024 4:27:00 PM UTC DISCHARGED TO HOME OR SELF CARE ENCOUNTER DIAGNOSES Notes information is not nohemy ilable. Code System Diagnosis Onset Date Diagnosis information is not available. ABSTRACT DIAGNOSES Code System Diagnosis Updated By Abatement Date M75.101 ICD10 UNSPECIFIED ROTA TOR CUFF TEAR OR RUPTURE OF RIGHT SHOULDER, NOT SPECIFIED TRAUMATIC [id number] on October 20, 2024 11:57:48 AM UTC M75.101 ICD10 UNSPECIFIED ROTA TOR CUFF TEAR OR RUPTURE OF RIGHT SHOULDER, NOT SPECIFIED TRAUMATIC [id number] on October 20, 2024 11:57:48 AM UTC CARE TEAM Care Galley Stripper Role HARESH CROWLEY Primary Attending HARESH CROWLEY Admitting HARESH CROWLEY Referring HARESH CROWLEY Primary Care CARE TEAM CARE food and beverage intern Role on Team Location Telecom Status Start Date End Wing e Updated By KEO HUTSON MD PCP normal October 14, 2024 7:56:38 PM [place] October 18, 2024 4:27:00 PM UTC [id number] on October 14, 2024 7:56:38 PM UTC KEO HUTSON MD Referring normal October 14, 2024 7:56:38 PM UTC October 18, 2024 4:27:00 PM UTC [id number] on October 14, 2024 7:56:38 PM [place] KEO HUTSON MD Attending normal October 14, 2024 7:56:38 PM UTC October 18, 2024 4:27:00 PM UTC [id number] on October 14, 2024 7:56:38 PM [place] KEO HUTSON MD Admitting normal October 14, 2024 7:56:38 PM UTC October 18, 2024 4:27:00 PM UTC [id number] on October 14, 2024 7:56:38 PM UTC
--- OUTSIDE RECORDS SUMMARY | 2024-11-12 01:56 | XMS_ITS | Continuity of Care Document ---
Author Organization [facility] [employer] Phone Care Team Providers Care Competitive Athlete Name Role Phone HARESH CROWLEY Unavailable HARESH CROWLEY Primary Attending [phone] HARESH CROWLEY Admitting HARESH CROWLEY Primary Care MEDICATIONS HOME MEDICATIONS Status RXNORM NDC Medication [...] Effective Dates Offered Cessation Comment Updated By [id number] Smoking Status Unknown If Ever Smoked SOCIAL HISTORY - Gender Sex: Female SOCIAL HISTORY - Status : status i nformation is not available Intention in Next Year: intention information is not available SOCIAL HISTORY - Assessments Code System Description Status Date Value of Assessment Updated By Comment Assessment Information is no t available SOCIAL HISTORY - [place] Affiliation [place] information is not av ailable SOCIAL HISTORY [...] available. ENCOUNTERS ENCOUNTER INFORMATION Reason for Visit SEVERE SHOULDER BLAD E PAIN AND WINGED SCAPULA Admission November 02, 2024 5:12:00 PM [place] C [address] [address] Discharge November 09, 2024 3:59:00 AM UTC D ISCHARGED TO HOME OR SELF CARE ENCOUNTER DIAGNOSES Notes information is not nohemy ilable. Code System Diagnosis Onset Date Diagnosis information is not available. ABSTRACT DIAGNOSES Code System Diagnosis Updated By Abatement Date M75.101 ICD10 UNSPECIFIED ROTA TOR CUFF TEAR OR RUPTURE OF RIGHT SHOULDER, NOT SPECIFIED TRAUMATIC [id number] on November 12, 2024 5:56:00 AM [facility] M54.6 ICD10 PAIN IN THORACIC SPINE [id number] on November 12, 2024 5:56:00 AM [place] M75.101 ICD10 UNSPECIFIED ROTA TOR CUFF TEAR OR RUPTURE OF RIGHT SHOULDER, NOT SPECIFIED TRAUMATIC [id number] on November 12, 2024 5:56:00 AM [facility] M54.6 ICD10 PAIN IN THORACIC SPINE [id number] on November 12, 2024 5:56:00 AM [facility] CARE TEAM Care Competitive Athlete Role HARESH CROWLEY Referring HARESH RCOWLEY Primary Attending HARESH CROWLEY Admitting HARESH CROWLEY Primary Care CARE TEAM CARE traffic manager Role on Team Location Telecom Status Start Date End Wing e Updated By KEO HUTSON MD PCP normal November 01, 2024 8:30:09 PM [facility] November 09, 2024 3:59:00 AM [facility] [id number] on November 01, 2024 8:30:09 PM [facility] KEO HUTSON MD Referring normal November 01, 2024 8:30:09 PM [facility] November 09, 2024 3:59:00 AM [facility] [id number] on November 01, 2024 8:30:09 PM [facility] KEO HUTSON MD Attending normal November 01, 2024 8:30:09 PM [facility] November 09, 2024 3:59:00 AM [facility] [id number] on November 01, 2024 8:30:09 PM [facility] KEO HUTSON MD Admitting normal November 01, 2024 8:30:09 PM [facility] November 09, 2024 3:59:00 AM [facility] [id number] on November 01, 2024 8:30:09 PM [facility]
--- OUTSIDE RECORDS SUMMARY | 2024-12-10 04:38 | XMS_ITS | Continuity of Care Document ---
Author Organization [facility] [employer] Phone Care Team Providers Care Paid Internship Name Role Phone HARESH CROWLEY Primary Attending HARESH CROWLEY Admitting HARESH CROWLEY Primary Care HARESH CROWLEY Unavailable MEDICATIONS HOME MEDICATIONS Status RXNORM NDC Medication [...] Effective Dates Offered Cessation Comment Updated By [id number] Smoking Status Unknown If Ever Smoked SOCIAL HISTORY - Gender Sex: Female SOCIAL HISTORY - Status : status i nformation is not available Intention in Next Year: intention information is not available SOCIAL HISTORY - Assessments Code System Description Status Date Value of Assessment Updated By Comment Assessment Information is no t available SOCIAL HISTORY - [place] Affiliation [place] information is not av ailable SOCIAL HISTORY [...] E PAIN AND WINGED SCAPULA Admission November 09, 2024 7:32:00 AM [place] [address] [address] Discharge December 10, 2024 3:59:00 AM [place] DISCHARGED TO HOME OR SELF CARE ENCOUNTER DIAGNOSES Notes information is not nohemy ilable. Code System Diagnosis Onset Date Diagnosis information is not available. ABSTRACT DIAGNOSES Code System Diagnosis Updated By Abatement Date Abstract Diagnosis informati on is not available. CARE TEAM Care Paid Internship Role HARESH CROWLEY Primary Attending HARESH CROWLEY Admitting HARESH CROWLEY Primary Care HARESH CROWLEY Referring CARE TEAM CARE furnace filler Role on Team Location Telecom Status Start Date End Wing e Updated By KEO HUTSON MD Referring normal November 09, 2024 7:34:11 PM [place] December 10, 2024 3:59:00 AM [place] [id number] on November 09, 2024 7:34:11 PM [facility] KEO HUTSON MD Attending normal November 09, 2024 7:34:11 PM [place] December 10, 2024 3:59:00 AM UTC [id number] on November 09, 2024 7:34:11 PM [facility] KEO HUTSON MD Admitting normal November 09, 2024 7:34:11 PM [place] December 10, 2024 3:59:00 AM UTC [id number] on November 09, 2024 7:34:11 PM [facility] KEO HUTSON MD PCP normal November 09, 2024 7:32:14 AM UTC December 10, 2024 3:59:00 AM UTC [id number] on November 09, 2024 7:34:11 PM [facility]
--- OUTSIDE RECORDS SUMMARY | 2024-12-10 11:30 | XMS_ITS | Patient Health Record ---
Author Organization [facility] NATTY Address [address] [place] [address] Care Team Providers Care Supervisor Files Name Role Phone Anjum Crowley Primary Care Provider [phone] Anjum Crowley Unavailable Unavailable Radha Gallo Unavailable [phone] Radha Swain Unavailable [phone] Migration, Provider Unavailable Unavailable Allergies No Known Allergies Results Component Value Reference Range Notes Urinalysis (Not yet reviewed by provider) Interpretation: Performing Lab: Notes/Report: Color/Clarity yellow Leuk small Nitrite positive Urobili 1.0 Protein 30mg pH 6.5 Blood small Sp. Gr. 1.020 Ketone neg Bili neg Glucose 100mg Urinalysis Reviewed date:09/06/2024 02:15:50 PM Interpretation: Performing Lab: Notes/Report: Color/Clarity yellow Leuk large Nitrite neg Urobili 1.0 Protein neg pH 6.0 Blood trace Sp. Gr. 1.015 Ketone neg Bili neg Glucose neg CULTURE, URINE, ROUTINE (395 ) Reviewed date:09/10/2024 10:10:27 PM Interpretation: Performing Lab:AMRITA, [facility] [address] [facility], [place] AbelNtlxOB[address] Justo Sprague Notes/Report: NON-FASTING CULTURE, URINE, ROUTINE SEE NOTE CULTURE, URINE, ROUTINE Micro Number: [id number] Test Status: Final Specimen Source: Urine Specimen Quality: Adequate Result: 50,000-100,000 CFU/mL of Escherichia coli E.coli INT JIMI AMOX/CLAVULANATE S <=2 AMP/SULBACTAM S <=2 CEFAZOLIN NR <=1 2 CEFEPIME S <=0.12 CEFTAZIDIME S <=0.5 CEFTRIAXONE S <=0.25 CIPROFLOXACIN S <=0.06 GENTAMICIN S <=1 IMIPENEM S <=0.25 LEVOFLOXACIN S <=0.12 MEROPENEM S <=0.25 NITROFURANTOIN S <=16 PIP/TAZOBACTAM S <=4 TRIMETHOPRIM/SULFA S <=20 S = Susceptible I = Intermediate R = Resistant NS = Not susceptible SDD = Susceptible Dose Dependent * = Not Tested NR = Not Reported NN = See Therapy Comments THERAPY COMMENTS Note 1: For infections other than uncomplicated UTI caused by E. coli, K. pneumoniae or P. mirabilis: Cefazolin is resistant if JIMI > or = 8 mcg/mL. (Distinguishing susceptible versus intermediate for isolates with JIMI < or = 4 mcg/mL requires additional testing.) Note 2: For uncomplicated UTI caused by E. coli, K. pneumoniae or P. mirabilis: Cefazolin is susceptible if JIMI <32 mcg/mL and predicts susceptible to the oral agents cefaclor, cefdinir, cefpodoxime, cefprozil, cefuroxime, cephalexin and loracarbef. THYROID PANEL WITH TSH (7444 ) Reviewed date:04/06/2024 09:00:15 PM Interpretation: Performing Lab:AMRITA [facility] [id number] iovox, Code [id number] Justo Sprague Notes/Report: NON-FASTING; NON-FASTING; NON-FASTING; NON-FASTING T3 UPTAKE 34 22-35 % T4 (THYROXINE), TOTAL 7.9 5.1-11.9 mcg/dL FREE T4 INDEX (T7) 2.7 1.4-3.8 TSH 1.84 Reference Range > or = 20 Years 0.40-4.50 Ranges First trimester 0.26-2.66 Second trimester 0.55-2.73 Third trimester 0.43-2.91 COMPREHENSIVE METABOLIC PANE L (60697) Reviewed date:04/06/2024 09:00:15 PM Interpretation: Performing Lab:AMRITA [facility] [id number] [facility] Justo Sprague Notes/Report: NON-FASTING; NON-FASTING; NON-FASTING; [...] 17 10-30 U/L ALT 11 6-29 U/L CBC (INCLUDES DIFF/PLT) (639 9) Reviewed date:04/06/2024 09:00:15 PM Interpretation: Performing Lab:CB, [facility] [id number] [facility] Justo Sprague Notes/Report: NON-FASTING; NON-FASTING; NON-FASTING; [...] MPV 10.7 7.5-12.5 fL ABSOLUTE NEUTROPHILS 2530 9000-1071 cells/uL ABSOLUTE LYMPHOCYTES 2005 850-3900 cells/uL ABSOLUTE MONOCYTES 375 200-950 cells/uL ABSOLUTE EOSINOPHILS 60 15-500 cells/uL ABSOLUTE BASOPHILS 30 0-200 cells/uL NEUTROPHILS 50.6 LYMPHOCYTES 40.1 MONOCYTES 7.5 EOSINOPHILS 1.2 BASOPHILS 0.6 MAGNESIUM (622) Reviewed date:04/06/2024 09:00:15 PM Interpretation: Performing Lab:CB, [facility] [id number], [place] WltcMB[address] Justo Sprague Notes/Report: NON-FASTING; NON-FASTING; NON-FASTING; NON-FASTING MAGNESIUM 2.1 1.5-2.5 mg/dL MRI EXTREM UPR JOINT RT WO Reviewed date:10/19/2024 09:28:56 AM Interpretation: Performing Lab: Notes/Report: [address] [place] [address] Name: SHANNON OAKLEY Exam Date: 10/18/2024 : 1995 Age 29 years Gender: F Physician: ANJUM CROWLEY Facility: [facility] Facility HSV: Outpatient Exam: MRI EXTREM [...] Ras Julio MD 10/18/2024 03:20 PM EDT Dictated By: RAS JULIO Transcribed By: Transcribed On: 10/18/2024 2:09 PM Electronically signed by: RAS JULIO 10/18/2024 Thank you for referring SHANNON OAKLEY to [facility]. Legally authenticated by NORI MCGINNIS MD 2024-10-18 14:09:19 CULTURE, AEROBIC AND ANAEROB IC W/GRAM STAIN (4446) Reviewed date:05/11/2024 11:01:17 AM Interpretation: Performing Lab:CB, [facility] [id number] [facility], [facility] CenterNlstOT[address] Justo Sprague Notes/Report: NON-FASTING CULTURE, ANAEROBIC BACTERIA W/GRAM STAIN SEE NOTE CULTURE, ANAEROBIC BACTERIA W/GRAM STAIN Micro Number: [id number] Test Status: Final Specimen Source: Other (specify) Specimen Quality: Adequate Gram Stain: No organisms seen Result: No anaerobes isolated. CULTURE, AEROBIC BACTERIA SEE NOTE CULTURE, AEROBIC BACTERIA Micro Number: [id number] Test Status: Final Specimen Source: Finger Specimen [...] and cephems with staphylococcal indications, including cefazolin. Reason For Referral Reason MRI right shoulder-3 weeks of pain after acute injury-see note-first available location-[facility] Diagnosis 1 Rotator cuff syndrom e of right shoulder (M75.101) Referral Organization [facility]TY Referring Provider First Name Anjum Referring Provider Last Name Max Referring Provider Speciality Internal M edicine Referred Organization [facility] Referred Address [address] [place] [place], [place],[address],[place] Referred Provider Specialty Diagnostic R adiology General Notes Tanja Grant 2024 03:12:00 PM >[facility]- Spoke with patient about all 3 Referral Priority Urgent Referral Appointment Date 10/18/2024 Reason Anjum Crowley ur 10/18/2024 07:41:00 PM EDT > Has normal mri but severe shoulder blade pain and winged scapula...set up PT with Florentin at [facility] jose Referral Organization [facility] Referring Provider First Name Anjum Referring Provider Last Name Solasabina Referring Provider Speciality Internal M edicine Referred Organization [facility] Referred Address [address] [place], [place],[address], Referred Provider Specialty Physical The rapist General Notes Tanja Grant 2024 10:16:18 AM >sent to [facility] Referral Priority Routine Reason Anjum Crowley rochelle 10/18/2024 07:41:00 PM EDT > Has normal mri but severe shoulder blade pain and winged scapula...set up PT with Florentin at [facility] and appt with [facility] ortho shouler person jose Referral Organization [facility] NATTY Referring Provider First Name Anjum Referring Provider Last Name Solasabina Referring Provider Speciality Internal M edicine Referred Organization [facility] Referred Address [address] [place], [place],[address],[place] Referred Provider Specialty Orthopedic S urgery General Notes Tanja Grant 2024 12:04:33 PM >Placed with [facility] Referral Priority Routine Medications Medication SIG (Take, Route, Fr equency, [...] Risk Notes Problem Intermenstrual bleeding - irregular (41275111) Menorrhagia with irregular cycle (N92.1) Active confirmed Problem Rupture of right rotator cuff (51551120837700157 ) Rotator cuff syndrome of right shoulder (M75.101) Active confirmed Problem Goiter (8590706) Goiter (E04.9) Active confirme d Problem Acquired hypothyroidism (712046193) Acquired hypothyroidism (E03.9) Active confirmed Problem Hyperthyroidism (94624884) Hyperthyroidism (E05.90) Active confirmed Vital Signs Heart Rate 80 /min 12/10/2024 Temperature 98 degrees Fahrenheit 12/10/2024 Blood pressure diastolic 72 mm Hg 12/10/2024 Height 62 in 12/10/2024 Blood pressure systolic 100 mm Hg 12/10/2024 Weight 114 lbs 12/10/2024 BMI 20.85 kg/m2 12/10/2024 Encounters Encounter Location Date Provider Diagnosis [facility] [address] [facility] [address] [place] [address] 05/14/2024 Provider Migration [facility] [place] [address] [address] 12/17/2023 Anjum Crowley Hyperthyroidism E05. 90 [facility] [place] [address] [address] 04/07/2024 Anjum Crowley Acquired hypothyroid ism E03.9 [facility] [place] [address] [address] 05/05/2024 Radha Swain Paronychia of finger of right hand L03.011 [facility] [place] [address] [address] 05/10/2024 Anjum Crowley Paronychia of finger of right hand L03.011 [facility] [place] [address] [address] 09/06/2024 Radha Swain Dysuria R30.0 and Ac cabazon cystitis with hematuria N30.01 [facility] [place] [address] [address] 10/14/2024 Anjum Crowley Rotator cuff syndrom e of right shoulder M75.101 and Acute right-sided thoracic back pain M54.6 [facility] [address] [facility] [address] [place] [address] 12/10/2024 Radha Gallo Dysuria R30.0 and Ac cabazon UTI N39.0 [facility] [address] [facility] [address] [place] [address] 05/09/2024 Anjum Crowley Assessments Encounter Date Diagnosis (ICD Code) Assessment Notes Treatment Notes Treatment Clinical Notes Section Notes 12/17/2023 Hyperthyroidism (ICD-10 - E05.90) Thyroid profile [...] finger uncovered, stop soaking given the maceration. 09/06/2024 Acute cystitis with hematuria (ICD-10 - N30.01) Start antibiotic for presumed UTI based on symptoms/UA results as stated above. I or one of my partners will follow urine culture for growth and anti-microbial sensitivities. Encouraged patient to drink plenty of fluids & stay well hydrated. Discussed return precautions to clinic/ED including fever, vomiting, new worsening abdominal or back pain, or if symptoms do not improve in 1-2 days. Patient voices understanding and is agreeable to the plan of care above. 09/06/2024 Dysuria (ICD-10 - R30.0) 10/14/2024 Rotator cuff syndrome of right shoulder (ICD-10 - M75.101) Will start with MRI of shoulder. Possible rotator cuff tear. However I think she may have done something to the scalene muscles but we will check the MRI of the shoulder first and then make Ortho referral as needed. 10/14/2024 Acute right-sided thoracic back pain (ICD-10 - M54.6) 12/10/2024 Dysuria (ICD-10 - R30.0) 12/10/2024 Acute UTI (ICD-10 - N39.0) Discussed suspected UTI based on symptoms/UA results and need for treatment with antibiotics as well as good water intake. Discussed return precautions including fever, vomiting, intractable pain, etc. Start cephalosporin as noted given possible Plan Of Treatment Pending Test Test Name Order Date Urinalysis 12/10/2024 MRI : Shoulder, Right 10/14/2024 M-Thyroid Panel 03/06/2023 B-Nfux-Zcjlayovugweq Antibody 03/06/2023 M-Vitamin B12 03/05/2023 M-Thyroid Peroxidase Antibodies 03/06/19 24 M-Urine Culture 12/10/2024 Insurance Providers Payer Name Payer Address Payer Phone Subscriber Number Group Number Insured Name Patient Relationship to Insured Coverage Start Date Coverage End Date [facility] [address] [place] [address] [id number] Shannon Oakley Self - patient is the insured Medical (General) History Surgical History Surgery Date(Month/Year) wisdom tooth removal Hospitalization History Reason Date(Month/Year) child
--- OUTSIDE RECORDS SUMMARY | 2024-12-10 11:30 | XMS_ITS | Patient Health Record ---
Author Organization [facility] Address [address] [facility] [address] [place] [address] Care Team Providers Care Supervisor Motor Vehicle Assembly Name Role Phone Jimbo Aj Unavailable [phone] Allergies No Known Allergies Reason For Referral [...] W/U Status Risk Notes Problem Postcoital bleeding (73839465) Postcoital and contact bleeding (N93.0) Active confirmed Problem (566940060) (O03.9) 021 Active confirmed Completed spontaneous Problem Noninflammatory disorder of the vagina (81464924) Bloody vaginal discharge (N89.8) 021 Active confirmed Vaginal irritation Plan Of Treatment No Information Insurance Providers Payer Name Payer Address Payer Phone Subscriber Number Group Number Insured Name Patient Relationship to Insured Coverage Start Date Coverage End Date [place] PPO [address] [place] [address] [phone] [id number] Shannon Zamudio Self - patient is the insured 2 Medical (General) History Medical History History ICD Code Yeast infection Surgical History Surgery Date(Month/Year) denies
--- OUTSIDE RECORDS SUMMARY | 2024-12-10 11:30 | XMS_ITS | Clinical Summary ---
[facility] Address [address] [place] [address] Care Team Providers Care Health And Nutrition Specialist Name Role Phone Steven Haynes MD Primary Care Provider [phone] Social History Tobacco Use Types Packs/Day Years Used Date Smoking Tobacco: Never Assessed Abuse Screen Answer Date Recorded Unsafe at Home or Work/School Not on file Feels Threatened by Someone? Not on file Does Anyone Keep You from Co ntacting Others or Doint Things Outside the Home? Not on file 11/21/2022 Physical Sign of Abuse Present Not on file 1 Housing Stability Answer Date Recorded Current Living Arrangements Not on file 11/09 Potentially Unsafe Housing Conditions Not on jana e 11/21/2022 Family and Community Support Answer Wing e Recorded Help with Day-to-Day Activities Not on file 11/21/2022 Lonely or Isolated Not on file 11/21/2022 Employment Answer Date Recorded Do you want help finding or keeping work or a salome b? Not on file 11/21/2022 Disabilities Answer Date Recorded Concentrating, Remembering, or Making Decisions Difficulty Not on file 11/21/2022 Doing Errands Independently Difficulty Not on fi le 11/21/2022 Education Answer Date Recorded Help with school or training? Not on file Preferred Language Not on file 11/21/2022 Comments Unknown Sex and Gender Information Value Date Recorded Sex Assigned at Not on file Legal Sex Female 3:19 PM EST Gender Identity Not on file Sexual Orientation Not on file Plan of Treatment Health Maintenance Due Date Last Done Comments ANNUAL PHYSICAL 1995 Annual Gynecologic Pelvic an d Breast Exam 1995 HEPATITIS C SCREENING 1995 TDAP/TD VACCINES (1 - Tdap) 04/12/2014 INFLUENZA VACCINE 09/09/2024 Pneumococcal Vaccine 0-49 Aged Out No longer eligible based on patient's age to complete this topic Insurance TERA Shha [id number] [facility] Care Teams Health And Nutrition Specialist Relationship Specialty Start Date End Date Steven Haynes MD [address] [place] [address] [place], [place] [address] PCP - General Internal Medicine 02/04/22
== END 2024-12-10 23:59 | disposition home or self-care (01) ==
PROVIDERS: PCP Nurse Practitioner Family; Visit Provider Nurse Practitioner Family
DX: R30.0 Dysuria (principal)
CPT/HCPCS: 87086; 87088; 87186

== ENCOUNTER 2024-12-21 13:09 | Outpatient (CLI) | payer BC, SELFPAY ==
--- OUTSIDE RECORDS SUMMARY | 2024-03-22 06:30 | XMS_ITS ---
Author Organization [facility] Address [address] [place] [address] Care Team Providers Care Nurses Director Name Role Phone Anjum Santana Primary Care Provider [phone] Anjum Santana Unavailable Unavailable REASON FOR VISIT med ck Encounters Encounter Location Date Provider Diagnosis [address] [address] 03/22/2024 Anjum Santana Plan Of Treatment No Information Progress Notes * Tyler OAKLEYOB:[birth year] (29 yo F)Acc No.[id number]:03/22/2024 Progress Notes Patient: Gale STANLEYabel Provider: Jordi Santana MD :1995 A ge:28 Y S ex:Female Date:03/22/2024 [facility] [facility] Subjective: * Chief Complaints: * 1 . Med ck. * Medical History: Objective: * Vitals: Assessment: Plan: * Treatment: * * Electronic signature of Mick Santana MD FAAP on 12/21/2024 at 01:31 PM EST Sign off status: Pending * Provider: Jordi Santana MD Date: 0 03/22/2024 Generated for Printi ng/Faxing/eTransmitting on: 1 02/21/2024 01:31 PM EST
--- OUTSIDE RECORDS SUMMARY | 2024-05-14 16:30 | XMS_ITS ---
Author Organization [facility] Address [address] [place] [address] Care Team Providers Care Executive Sales Manager Name Role Phone Anjum Santana Primary Care Provider Anjum Santana Unavailable Unavailable Migration, Provider Unavailable Unavailable REASON FOR VISIT [facility] Conversion Encounter Medications Medication SIG (Take, Route, [...] [address] [place] [address] 05/14/2024 Provider Migration Plan Of Treatment No Information Progress Notes * Tyler OAKLEYOB:[birth year] (29 yo F)Acc No.[id number]:05/14/2024 Patient: Shannon STANLEY Provider: Sita dunham Migration :1995 A ge:29 Y S ex:Female Date:05/14/2024 Address:[facility] [address] [place] Pcp:Anjum Santana Subjective: * Chief Complaints: * [...] Electronic signature of Prov abhinavr Migration on 12/21/2024 at 01:30 PM EST Sign off status: Pending * Provider: Sita dunham Migration Date: 0 05/14/2024 Generated for Kelsie clement/Janet/Johnny on: 1 02/21/2024 01:30 PM EST
--- OUTSIDE RECORDS SUMMARY | 2024-12-10 06:00 | XMS_ITS ---
Author Organization [facility] NATTY Address [address] [facility] [address] [place] [address] Care Team Providers Care Excavator Backhoe Operator Name Role Phone Anjum Santana Primary Care Provider Anjum Santana Unavailable Unavailable Radha Gallo Unavailable [phone] Allergies No Known Allergies Results Component Value Reference Range Notes Urinalysis Reviewed date:12/10/2024 12:08:28 PM Interpretation: Performing Lab: Notes/Report: Color/Clarity yellow Leuk small Nitrite positive Urobili 1.0 Protein 30mg pH 6.5 Blood small Sp. Gr. 1.020 Ketone neg Bili neg Glucose 100mg M-Urine Culture Reviewed date:12/12/2024 02:57:55 PM Interpretation: Performing Lab: Notes/Report: CUU ORGANISM 1: Proteus mirabilis RX MCLEAN: R- Resistant S- Susceptible I- Intermediate * Not on [facility] CUU [place] Count >100,000 RX MCLEAN: R- Resistant S- Susceptible I- Intermediate * [facility] RX MCLEAN: R- Resistant S- Susceptible I- Intermediate * [facility] RX MCLEAN: R- Resistant S- Susceptible I- Intermediate * [facility] Proteus mirabilis: REACTION RX MCLEAN: R- Resistant S- Susceptible I- Intermediate * Not on [facility] CUU Amikacin <=8 S RX MCLEAN: R- Resistant S- Susceptible I- Intermediate * [facility] Ampicillin <=4 S RX MCLEAN: R- Resistant S- Susceptible I- Intermediate * Not on [facility] Aztreonam <=2 S RX MCLEAN: R- Resistant S- Susceptible I- Intermediate * Not on [facility] Cefepime <=1 S RX MCLEAN: R- Resistant S- Susceptible I- Intermediate * [facility] Ceftazid[facility] <=2 S RX MCLEAN: R- Resistant S- Susceptible I- Intermediate * Not on [facility] Ceftriaxone <=1 S RX MCLEAN: R- Resistant S- Susceptible I- Intermediate * Not on [facility] Ciprofloxacin <=0.25 S RX MCLEAN: R- Resistant S- Susceptible I- Intermediate * Not on [facility] Ertapenem <=0.25 S RX MCLEAN: R- Resistant S- Susceptible I- Intermediate * Not on [facility] Gentamicin 4 S RX MCLEAN: R- Resistant S- Susceptible I- Intermediate * Not on [facility] Levofloxacin <=0.5 S RX MCLEAN: R- Resistant S- Susceptible I- Intermediate * Not on [facility] Nitrofurantoin >64 R RX MCLEAN: R- Resistant S- Susceptible I- Intermediate * Not on [facility] Tetracycline >8 R RX MCLEAN: R- Resistant S- Susceptible I- Intermediate * Not on [facility] Tobramycin <=2 S RX MCLEAN: R- Resistant S- Susceptible I- Intermediate * Not on [facility] Trimethoprim/Sulfame thoxaz ole <=0.5/9.5 S RX MCLEAN: R- Resistant S- Susceptible I- Intermediate * [facility] Piperacillin/Tazobac alexander <=2/4 S RX MCLEAN: R- Resistant S- Susceptible I- Intermediate * Not on [facility] RX MCLEAN: R- Resistant S- Susceptible I- Intermediate * Not on [facility] REASON FOR VISIT Possible UTI, frequency and pain Medications Medication SIG (Take, Route, Fr equency, Duration) Notes Start Date End Date Status Cefdinir 300 MG 300 mg Orally 2 time s a day; Duration: 5 days 12/10/2024 Active Synthroid 50 MCG 1 tab(s) orally once a day; Duration: 90 days Active Vital Signs Temperature 98 degrees Fahrenheit 12/10/2024 Blood pressure systolic 100 mm Hg 12/11/19 25 Blood pressure diastolic 72 mm Hg 025 Heart Rate 80 /min 12/10/2024 Height 62 in 12/10/2024 Weight 114 lbs 12/10/2024 BMI 20.85 kg/m2 12/10/2024 Encounters Encounter Location Date Provider Diagnosis [facility] [address] [place] [address] 12/10/2024 Radha Gallo Dysuria R30.0 and Acute UTI N39.0 Assessments Encounter Date Diagnosis (ICD Code) Assessment Notes Treatment Notes Treatment Clinical Notes Section Notes 12/10/2024 Dysuria (ICD-10 - R30.0) 12/10/2024 Acute UTI (ICD-10 - N39.0) Discussed suspected UTI based on symptoms/UA results and need for treatment with antibiotics as well as good water intake. Discussed return precautions including fever, vomiting, intractable pain, etc. Start cephalosporin as noted given possible Plan Of Treatment Medication Medication Name Sig Start Date Stop Date Notes Cefdinir 300 MG 300 mg Orally 2 time s a day; Duration: 5 days 12/10/2024 Next Appt Details Follow Up: prn, Reason: Progress Notes * ADIN TylerOB:[birth year] (29 yo F)Acc No.[id number]:12/10/2024 Progress Notes Patient: Shannon STANLEY Provider: JE Hodge :1995 A ge:29 Y S ex:Female Date:12/10/2024 Address:[address] [place] [address] [place], [id number] Pcp:Anjum Santana Subjective: * Chief Complaints: * 1 . Possible UTI, frequency and pain. * HPI: U rology: 29 yr old female presents today with complaints of new onset dysuria yesterday morning. Symptoms are not severe but persistent. She has had 3 or 4 urinary tract infections in her lifetime, none have been complicated. She and her are attempting to conceive but not sure that she is at this time. She denies vaginal or GI symptoms. 29 year old female presents with c/o frequent urination. c/o burning sensation. Denies : flank pain. D enies : suprapubic pain. D enies : incontinence. D enies : hematuria. D enies : fever. * ROS: C ONSTITUTIONAL: Reviewed, No Symptoms Reported: Y es. G ASTROENTEROLOGY: Reviewed, No Symptoms Reported: Y es. U ROLOGY: See HPI Y es. * Medical History: N o Reported Medical History.Medical History Verified. * Medications: T aking Synthroid 50 MCG Tablet 1 tab(s) orally once a day , Discontinued Diclofenac Sodium 75 MG Tablet Delayed Release 1 tab(s) orally 2 times a day for seven days, then twice daily as needed , Medication List reviewed and reconciled with the patient * Allergies: N .K.D.A. Objective: * Vitals: N urse: KJ, Pain: 2, Temp: 98, RR: 16, HR: 80, BP: 100/72, Ht: 62, Wt: 114, BMI:20.85. * Examination: G eneral Examination: General P leasant and Cooperative, NAD on RA,. Heart: R egular Rate and Rhythm, no murmur, rubs or gallops. Lungs: c lear to auscultation,. Abdomen: s oft, NT/ND, BS present. Psych N ormal Mood/Affect. Assessment: * Assessment: 1. A cute UTI - N39.0 (Primary) 2 . D ysuria - R30.0 Plan: * Treatment: 2. D ysuria L AB: M-Urine Culture ?LAB: Urinalysis (Collection Date & Time - 12/10/2024)* Value Reference Range C olor/Clarity yellow * L euk small * N itrite positive * U robili 1.0 * P rotein 30mg * p H 6.5 * B lood small * S p. Gr. 1.020 * K etone neg * B manuel neg * G lucose 100mg * This lab was reviewed by Dalia Gallo on 12/10/2024 at 12:08 PM EDT * Procedure Codes: 8 1002 URINALYSIS, Modifiers: QW * Follow Up: p rn * * Sign off status: Completed true * Provider: JE Hodge Date: 02/10/2024 Generated for Kelsie clement/Janet/Johnny on: 02/21/2024 01:30 PM EST History and Physical Notes * HPI (History of Present Illness) Category Sub-Category Detail Notes Category Not es Urology frequent urination burning sensation flank pain suprapubic pain incontinence hematuria fever Examination Category Sub-Category Detail Notes Category Not es General Examination Heart: Regular Rate and Rhythm, no murmur, rubs or gallops Lungs: clear to auscultatio n, Abdomen: soft, NT/ND, BS pres ent General Pleasant and Coopera tive, NAD on RA, Psych Normal Mood/Affect
--- OUTSIDE RECORDS SUMMARY | 2024-12-12 08:20 | XMS_ITS | Continuity of Care Document ---
Author Organization [facility] [employer] Phone Care Team Providers Care Driller Machine Name Role Phone HARESH CROWLEY Primary Attending [phone] HARESH CROWLEY Admitting HARESH CROWLEY Primary Care [...] Effective Dates Offered Cessation Comment Updated By [id number] Smoking Status Unknown If Ever Smoked SOCIAL HISTORY - Gender Sex: Female SOCIAL HISTORY - Status : status i nformation is not available Intention in Next Year: intention information is not available SOCIAL HISTORY - Assessments Code System Description Status Date Value of Assessment Updated By Comment Assessment Information is no t available SOCIAL HISTORY - [place] Affiliation [place] information is not av ailable SOCIAL HISTORY [...] November 09, 2024 7:32:00 AM [place] B [address] [address] Discharge December 10, 2024 3:59:00 AM UT DISCHARGED TO HOME OR SELF CARE ENCOUNTER DIAGNOSES Notes information is not nohemy ilable. Code System Diagnosis Onset Date Diagnosis information is not available. ABSTRACT DIAGNOSES Code System Diagnosis Updated By Abatement Date G2.89 ICD10 OTHER SPECIFIED EXTRAPYRAMIDAL AND MOVEMENT DISORDERS [id number] on December 12, 2024 1:20:08 PM [facility] G25.89 ICD10 OTHER SPECIFIED EXTRAPYRAMIDAL AND MOVEMENT DISORDERS [id number] on December 12, 2024 1:20:08 PM [facility] CARE TEAM Care Driller Machine Role HARESH CROWLEY Primary Attending HARESH CROWLEY Admitting HARESH CROWLEY Primary Care HARESH CROWLEY Referring CARE TEAM CARE forest worker Role on Team Location Telecom Status Start Date End Wing e Updated By KEO HUTSON MD Referring normal November 09, 2024 7:34:11 PM [facility] December 10, 2024 3:59:00 AM [facility] [id number] on November 09, 2024 7:34:11 PM [facility] KEO HUTSON MD Attending normal November 09, 2024 7:34:11 PM [facility] December 10, 2024 3:59:00 AM [facility] [id number] on November 09, 2024 7:34:11 PM [facility] KEO HUTSON MD Admitting normal November 09, 2024 7:34:11 PM [facility] December 10, 2024 3:59:00 AM [facility] [id number] on November 09, 2024 7:34:11 PM [facility] KEO HUTSON MD PCP normal November 09, 2024 7:32:14 AM [facility] December 10, 2024 3:59:00 AM [facility] [id number] on November 09, 2024 7:34:11 PM [facility]
--- OUTSIDE RECORDS SUMMARY | 2024-12-21 13:31 | XMS_ITS | Clinical Summary ---
[facility] Address [address] [place] [address] Care Team Providers Care Interstate Planner Name Role Phone Steven Haynes MD Primary Care Provider [phone] Social History Tobacco Use Types Packs/Day Years [...] age to complete this topic Insurance [place] Shah [id number] [facility] Care Teams Interstate Planner Relationship Specialty Start Date End Date Steven Haynes MD [address] [place] [address] [place], [place] [address] PCP - General Internal Medicine 02/04/22
--- OUTSIDE RECORDS SUMMARY | 2024-12-21 13:31 | XMS_ITS | Patient Health Record ---
Author Organization [facility] Address [address] [facility] [address] [place] [address] Care Team Providers Care Sewer System Supervisor Name Role Phone Jimbo Aj Unavailable [phone] Allergies No Known Allergies Reason For Referral [...] W/U Status Risk Notes Problem Postcoital bleeding (39928531) Postcoital and contact bleeding (N93.0) Active confirmed Problem (240314262) (O03.9) 021 Active confirmed Completed spontaneous Problem Noninflammatory disorder of the vagina (61415704) Bloody vaginal discharge (N89.8) 021 Active confirmed Vaginal irritation Plan Of Treatment No Information Insurance Providers Payer Name Payer Address Payer Phone Subscriber Number Group Number Insured Name Patient Relationship to Insured Coverage Start Date Coverage End Date [place] PPO [address] [place] [address] [id number] Shannon Zamudio Self - patient is the insured 2 Medical (General) History Medical History History ICD Code Yeast infection Surgical History Surgery Date(Month/Year) denies
--- OUTSIDE RECORDS SUMMARY | 2024-12-21 13:31 | XMS_ITS | Patient Health Record ---
Author Organization [facility] Address [address] [place] [address] Care Team Providers Care Apple Solutions Consultant Name Role Phone Anjum Crowley Primary Care Provider Anjum Crowley Unavailable Unavailable Radha Gallo Unavailable [phone] Radha Swain Unavailable [phone] Migration, Provider Unavailable Unavailable Allergies No Known [...] S- Susceptible I- Intermediate * Not on [facility] [place] Count >100,000 RX MCLEAN: R- Resistant S- Susceptible I- Intermediate * [facility] RX MCLEAN: R- Resistant S- Susceptible I- Intermediate * [facility] RX MCLEAN: R- Resistant S- Susceptible I- Intermediate * Not on [facility]U Proteus mirabilis: REACTION RX MCLEAN: R- Resistant S- Susceptible I- Intermediate * Not on [facility] Amikacin <=8 S RX MCLEAN: R- Resistant S- Susceptible I- Intermediate * [facility] Amp[facility] <=4 S RX MCLEAN: R- Resistant S- Susceptible I- Intermediate * [facility] Aztreonam <=2 S RX MCLEAN: R- Resistant S- Susceptible I- Intermediate * [facility] Cefepime <=1 S RX MCLEAN: R- Resistant S- Susceptible I- Intermediate * [facility] Ceftazidime <=2 S RX MCLEAN: R- Resistant S- Susceptible I- Intermediate * [facility] Ceftriaxone <=1 S RX MCLEAN: R- Resistant S- Susceptible I- Intermediate * [facility] Ciprofloxacin <=0.25 S RX MCLEAN: R- Resistant S- Susceptible I- Intermediate * [facility] Ertapenem <=0.25 S RX MCLEAN: R- Resistant S- Susceptible I- Intermediate * [facility] Gentamicin 4 S RX MCLEAN: R- Resistant S- Susceptible I- Intermediate * [facility] Levofloxacin <=0.5 S RX MCLEAN: R- Resistant S- Susceptible I- Intermediate * [facility] Nitrofurantoin >64 R RX MCLEAN: R- Resistant S- Susceptible I- Intermediate * [facility] Tetracycline >8 R RX MCLEAN: R- Resistant S- Susceptible I- Intermediate * [facility] Tobramycin <=2 S RX MCLEAN: R- Resistant S- Susceptible I- Intermediate * [facility] Trimethoprim/Sulfame tho xazole <=0.5/9.5 S RX MCLEAN: R- Resistant S- Susceptible I- Intermediate * [facility] Piperacillin/Tazobac alexander <=2/4 S RX MCLEAN: R- Resistant S- Susceptible I- Intermediate * Not on [facility] CUU RX MCLEAN: R- Resistant S- Susceptible I- Intermediate * Not on [facility] MAGNESIUM (622) Reviewed date:04/06/2024 09:00:15 PM Interpretation: Performing Lab:[facility], [facility] [address], [place] AbelRxspLV[address] Justo Sprague Notes/Report: NON-FASTING; NON-FASTING; NON-FASTING; NON-FASTING MAGNESIUM 2.1 1.5-2.5 mg/dL CBC (INCLUDES DIFF/PLT) (639 9) Reviewed date:04/06/2024 09:00:15 PM Interpretation: Performing Lab:[facility] [id number] [facility] [facility], Reg[facility] HospitalXjmvWD[address] Justo Sprague Notes/Report: NON-FASTING; NON-FASTING; NON-FASTING; NON-FASTING WHITE BLOOD CELL COUNT 5.0 3.8-10.8 Thousand/uL RED BLOOD CELL COUNT 4.41 3.80-5.10 Million/uL [...] MPV 10.7 7.5-12.5 fL ABSOLUTE NEUTROPHILS 2530 0917-4152 cells/uL ABSOLUTE LYMPHOCYTES 2005 850-3900 cells/uL ABSOLUTE MONOCYTES 375 200-950 cells/uL ABSOLUTE EOSINOPHILS 60 15-500 cells/uL ABSOLUTE BASOPHILS 30 0-200 cells/uL NEUTROPHILS 50.6 LYMPHOCYTES 40.1 MONOCYTES 7.5 EOSINOPHILS 1.2 BASOPHILS 0.6 COMPREHENSIVE METABOLIC PANE (00863) Reviewed date:04/06/2024 09:00:15 PM Interpretation: Performing Lab:[facility] [id number], Regions HospitalUqpzYJ[address] Justo Sprague Notes/Report: NON-FASTING; NON-FASTING; NON-FASTING; NON-FASTING [...] Reviewed date:04/06/2024 09:00:15 PM Interpretation: Performing Lab:[facility]enavu[address] [place], OneTokGdmsJW[address] Justo Sprague Notes/Report: NON-FASTING; NON-FASTING; NON-FASTING; NON-FASTING T3 UPTAKE 34 22-35 % T4 (THYROXINE), TOTAL 7.9 5.1-11.9 mcg/dL FREE T4 INDEX (T7) 2.7 1.4-3.8 TSH 1.84 Reference Range > or = 20 Years 0.40-4.50 Ranges First trimester 0.26-2.66 Second trimester 0.55-2.73 Third trimester 0.43-2.91 CULTURE, URINE, ROUTINE (395 ) Reviewed date:09/10/2024 10:10:27 PM Interpretation: Performing Lab:[facility] [place], WordSentryDlejXN[address] Justo Sprague Notes/Report: NON-FASTING CULTURE, URINE, ROUTINE SEE NOTE CULTURE, URINE, ROUTINE Micro Number: [id number] Test Status: Final Specimen Source: Urine Specimen [...] cefdinir, cefpodoxime, cefprozil, cefuroxime, cephalexin and loracarbef. Urinalysis Reviewed date:09/06/2024 02:15:50 PM Interpretation: Performing Lab: Notes/Report: Color/Clarity yellow Leuk large Nitrite neg Urobili 1.0 Protein neg pH 6.0 Blood trace Sp. Gr. 1.015 Ketone neg Bili neg Glucose neg CULTURE, AEROBIC AND ANAEROB IC W/GRAM STAIN (4446) Reviewed date:05/11/2024 11:01:17 AM Interpretation: Performing Lab:CB, [facility] Begk9401 [facility], Regions HospitalTxjyLL[address] Justo Sprague Notes/Report: NON-FASTING CULTURE, ANAEROBIC BACTERIA W/GRAM STAIN SEE NOTE CULTURE, ANAEROBIC BACTERIA W/GRAM STAIN Micro Number: [id number] Test Status: Final Specimen Source: Other (specify) Specimen Quality: Adequate Gram Stain: No organisms seen Result: No anaerobes isolated. CULTURE, AEROBIC BACTERIA SEE NOTE CULTURE, AEROBIC BACTERIA Micro Number: [id number] Test Status: Final Specimen Source: Finger Specimen [...] and cephems with staphylococcal indications, including cefazolin. MRI EXTREM UPR JOINT RT WO Reviewed date:10/19/2024 09:28:56 AM Interpretation: Performing Lab: Notes/Report: [address] [place] [address] Name: SHANNON OAKLEY Exam Date: 10/18/2024 : 1995 Age 29 years Gender: F Physician: ANJUM CROWLEY Facility: [facility] Facility HSV: Outpatient Exam: MRI EXTREM UPR [...] Unremarkable MRI shoulder Electronically signed by: Ras Pope MD 10/18/2024 03:20 PM EDT Dictated By: RAS POPE Transcribed By: Transcribed On: 10/18/2024 2:09 PM Electronically signed by: RAS POPE 10/18/2024 Thank you for referring SHANNON OAKLEY to [facility]. Legally authenticated by NORI MCGINNIS MD 2024-10-18 14:09:19 Reason For Referral Reason MRI right shoulder-3 weeks of pain after acute injury-see note-first available location-[facility] Diagnosis 1 Rotator cuff syndrom e of right shoulder (M75.101) Referral Organization [facility] Referring Provider First Name Anjum Referring Provider Last Name Max Referring Provider Speciality Internal M edicine Referred Organization [facility] MRI Referred Address [address] [place], [place],[address],[place] Referred Provider Specialty Diagnostic R adiology General Notes Tanja Grant 2024 03:12:00 PM >sent to [facility], [facility] and [facility]- Spoke with patient about all 3 Referral Priority Urgent Referral Appointment Date 10/18/2024 Reason SolaAnjum muhammad Kevin byrd 10/18/2024 07:41:00 PM EDT > Has normal mri but severe shoulder blade pain and winged scapula...set up PT with Florentin at [facility] [address] Referral Organization [facility] Referring Provider First Name Anjum Referring Provider Last Name Max Referring Provider Speciality Internal edicine Referred Organization [facility] Referred Address [address] [place], [place],[address], Referred Provider Specialty Physical The rapist General Notes Tanja Grant 2024 10:16:18 AM >sent to [facility] Referral Priority Routine Reason SolaAnjum muhammad Kevin byrd 10/18/2024 07:41:00 PM EDT > Has normal mri but severe shoulder blade pain and winged scapula...set up PT with Florentin at [facility] jose and appt with [facility] ortho shouler person jose Referral Organization [facility] Referring Provider First Name Anjum Referring Provider Last Name Max Referring Provider Speciality Internal edicine Referred Organization [facility] Referred Address [address] [place], [place],[address],[place] Referred Provider Specialty Orthopedic S urgery General Notes Tanja Grant 2024 12:04:33 PM >Placed with [facility] Referral Priority Routine Medications Medication SIG [...] Risk Notes Problem Intermenstrual bleeding - irregular (62996252) Menorrhagia with irregular cycle (N92.1) Active confirmed Problem Rupture of right rotator cuff (22418233529481053 ) Rotator cuff syndrome of right shoulder (M75.101) Active confirmed Problem Goiter (8314532) Goiter (E04.9) Active confirme d Problem Acquired hypothyroidism (069158376) Acquired hypothyroidism (E03.9) Active confirmed Problem Hyperthyroidism (19918969) Hyperthyroidism (E05.90) Active confirmed Vital Signs Heart Rate 80 /min 12/10/2024 Temperature 98 degrees Fahrenheit 12/10/2024 Blood pressure diastolic 72 mm Hg 12/10/2024 Height 62 in 12/10/2024 Blood pressure systolic 100 mm Hg 12/10/2024 Weight 114 lbs 12/10/2024 BMI 20.85 kg/m2 12/10/2024 Encounters Encounter Location Date Provider Diagnosis [facility] [address] [facility] [address] [place] [address] 05/14/2024 Provider Migration [facility] [address] [address] 04/07/2024 Anjum Crowley Acquired hypothyroidism E03.9 [facility] [address] [address] 05/05/2024 Radha Swain Paronychia of finger of right hand L03.011 [facility] [address] [address] 05/10/2024 Anjum Crowley Paronychia of finger of right hand L03.011 [facility] [address] [address] 09/06/2024 Radha Swain Dysuria R30.0 and Acute cystitis with hematuria N30.01 [facility] [place] [address] [facility] [facility] [address] [place] [id number] 10/14/2024 Anjum Max Rotator cuff syndrom e of right shoulder M75.101 and Acute right-sided thoracic back pain M54.6 [facility] [address] [place] [address] 12/10/2024 Radha Gallo Dysuria R30.0 and Acute UTI N39.0 [facility] [address] [place], [place] [address] 05/09/2024 Anjumluly Crowley Assessments Encounter Date Diagnosis (ICD Code) Assessment Notes Treatment Notes Treatment Clinical Notes Section Notes 04/07/2024 Acquired hypothyroidism (ICD-10 - E03.9) I [...] Treatment Pending Test Test Name Order Date MRI : Shoulder, Right 10/14/2024 M-Thyroid Panel 03/06/2023 T-Yrgy-Cgkkmevdwoygb Antibody 03/06/2023 M-Vitamin B12 03/05/2023 M-Thyroid Peroxidase Antibodies 03/06/19 24 Insurance Providers Payer Name Payer Address Payer Phone Subscriber Number Group Number Insured Name Patient Relationship to Insured Coverage Start Date Coverage End Date [facility] [employer] [address] [place] [address] [id number] Shannon Oakley Self - patient is the insured Medical (General) History Surgical History Surgery Date(Month/Year) wisdom tooth removal Hospitalization History Reason Date(Month/Year) child
== END 2024-12-21 23:59 | disposition home or self-care (01) ==
LOC: LAB 13:10
PROVIDERS: PCP Internal Medicine Adolescent Medicine; Visit Provider Obstetrics & Gynecology
DX: Z34.90 Encounter for supervision of normal pregnancy, unspecified, unspecified trimester (principal); N92.6 Irregular menstruation, unspecified; Z3A.00 Weeks of gestation of pregnancy not specified
CPT/HCPCS: 36415; 84144; 84702

== ENCOUNTER 2024-12-23 12:08 | Outpatient (CLI) | payer BC, SELFPAY ==
--- OUTSIDE RECORDS SUMMARY | 2024-03-22 06:30 | XMS_ITS ---
Author Organization [facility] D [facility] Address [address] [place] [address] Care Team Providers Care Retaining Room Cutter Name Role Phone Anjum Santana Primary Care Provider Anjum Santana Unavailable Unavailable REASON FOR VISIT med ck Encounters Encounter Location Date Provider Diagnosis [address] [address] 03/22/2024 Anjum Santana Plan Of Treatment No Information Progress Notes * Tyler OAKLEYOB:[birth year] (29 yo F)Acc No.[id number]:03/22/2024 Progress Notes Patient: Gale STANLEYabel Provider: Jordi Santana MD :1995 A ge:28 Y S ex:Female Date:03/22/2024 [facility] Subjective: * Chief Complaints: * 1 . Med ck. * Medical History: Objective: * Vitals: Assessment: Plan: * Treatment: * * Electronic signature of Mick Santana MD FAAP on 12/23/2024 at 12:13 PM EST Sign off status: Pending * Provider: Jordi Santana MD Date: 0 03/22/2024 Generated for Printi ng/Faxing/eTransmitting on: 1 02/23/2024 12:13 PM EST
--- OUTSIDE RECORDS SUMMARY | 2024-05-14 16:30 | XMS_ITS ---
Author Organization [facility] Address [address] [place] [address] Care Team Providers Care Recruitment Manager Name Role Phone Anjum Santana Primary Care Provider Anjum Santana Unavailable Unavailable Migration, Provider Unavailable Unavailable REASON FOR VISIT [facility] Conversion Encounter Medications Medication SIG (Take, Route, Frequency, Duration) Notes Start Date End Date Status Cefdinir 300 MG 1 cap(s) orally ever y 12 hours; Duration: 7 days 05/09/2024 Active Fluconazole 150 MG 1 tab(s) orally once ; Duration: 1 days 05/05/2024 Active Amoxicillin-Pot Clavulanate 875-125 MG 1 tab(s) orally every 12 hours; Duration: 7 days 05/05/2024 Active Mupirocin 2 % 1 daniella applied topica lly 3 times a day; Duration: 7 days 05/05/2024 Active Synthroid 50 MCG 1 tab(s) orally once a day; Duration: 90 days Active Encounters Encounter Location Date Provider Diagnosis [facility] [address] [place] [address] 05/14/2024 Provider Migration Plan Of Treatment No Information Progress Notes * Tyler OAKLEYOB:[birth year] (29 yo F)Acc No.[id number]:05/14/2024 Patient: Shannon STANLEY Provider: Sita dunham Migration :1995 A ge:29 Y S ex:Female Date:05/14/2024 Address:[facility] [address] [place] Pcp:Anjum Santana Subjective: * Chief Complaints: * 1 . [facility] Conversion Encounter. * Medical History: * Medications: T aking Synthroid 50 MCG Tablet 1 tab(s) orally once a day , Taking Mupirocin 2 % Ointment 1 daniella applied topically 3 times a day , Taking Amoxicillin-Pot Clavulanate 875-125 MG Tablet 1 tab(s) orally every 12 hours , Taking Fluconazole 150 MG Tablet 1 tab(s) orally once , Taking Cefdinir 300 MG Capsule 1 cap(s) orally every 12 hours Objective: * Vitals: Assessment: Plan: * Treatment: * * Electronic signature of Prov abhinavr Migration on 12/23/2024 at 12:12 PM EST Sign off status: Pending * Provider: Sita dunham Migration Date: 0 05/14/2024 Generated for Kelsie clement/Janet/Johnny on: 1 02/23/2024 12:12 PM EST
--- OUTSIDE RECORDS SUMMARY | 2024-12-10 06:00 | XMS_ITS ---
Author Organization [facility] NATTY Address [address] [facility] [address] [place] [address] Care Team Providers Care Sausage Cooker Name Role Phone Anjum Santana Primary Care Provider Anjum Santana Unavailable Unavailable Radha Gallo Unavailable [phone] Allergies No Known Allergies Results Component Value [...] S- Susceptible I- Intermediate * Not on [facility] CUU [place] Count >100,000 RX MCLEAN: R- Resistant S- Susceptible I- Intermediate * [facility] RX MCLEAN: R- Resistant S- Susceptible I- Intermediate * [facility] RX MCLEAN: R- Resistant S- Susceptible I- Intermediate * [facility] Proteus mirabilis: REACTION RX MCLEAN: R- Resistant S- Susceptible I- Intermediate * Not on [facility] CUU Amikacin <=8 S RX MCLEAN: R- Resistant S- Susceptible I- Intermediate * [facility] Ampicillin <=4 S RX MCLEAN: R- Resistant S- Susceptible I- Intermediate * Not on [facility] Aztreonam <=2 S RX MCLEAN: R- Resistant S- Susceptible I- Intermediate * Not on [facility] Cefepime <=1 S RX MCLEAN: R- Resistant S- Susceptible I- Intermediate * [facility] Ceftazidime <=2 S RX MCLEAN: R- Resistant S- Susceptible I- Intermediate * Not on [facility] Ceftriaxone <=1 S RX MCLEAN: R- Resistant S- Susceptible I- Intermediate * Not on [facility] Ciprofloxacin <=0.25 S RX MCLEAN: R- Resistant S- Susceptible I- Intermediate * Not on [facility] Ertapenem <=0.25 S RX MCLEAN: R- Resistant S- Susceptible I- Intermediate * Not on [facility] Gentamicin 4 S RX MCLEAN: R- Resistant S- Susceptible I- Intermediate * Not on [facility] Levofloxacin <=0.5 S RX MCLEAN: R- Resistant S- Susceptible I- Intermediate * Not on [facility] Nitrofurantoin >64 R RX MCLEAN: R- Resistant S- Susceptible I- Intermediate * Not on [facility] Tetracycline >8 R RX MCLEAN: R- Resistant S- Susceptible I- Intermediate * Not on [facility] Tobramycin <=2 S RX MCLEAN: R- Resistant S- Susceptible I- Intermediate * Not on [facility] Trimethoprim/Sulfame thoxaz ole <=0.5/9.5 S RX MCLEAN: R- Resistant S- Susceptible I- Intermediate * [facility] Piperacillin/Tazobac alexander <=2/4 S RX MCLEAN: R- Resistant S- Susceptible I- Intermediate * Not on [facility] RX MCLEAN: R- Resistant S- Susceptible I- Intermediate * Not on [facility] REASON FOR VISIT Possible UTI, frequency [...] 12/10/2024 Encounters Encounter Location Date Provider Diagnosis [facility] [address] [place] [address] 12/10/2024 Radha Gallo Dysuria R30.0 and Acute [...] * ADIN TylerOB:[birth year] (29 yo F)Acc No.[id number]:12/10/2024 Progress Notes Patient: Shannon STANLEY Provider: JE Hodge :1995 A ge:29 Y S ex:Female Date:12/10/2024 Address:[address] [place] [address] [place], [id number] Pcp:Anjum Santana Subjective: * Chief Complaints: * [...] Date: 02/10/2024 Generated for Kelsie clement/Janet/Johnny on: 02/23/2024 12:11 PM EST History and Physical Notes * [...]
--- OUTSIDE RECORDS SUMMARY | 2024-12-23 12:12 | XMS_ITS | Clinical Summary ---
[facility] [address] [place] [address] Care Team Providers Care Card Processing Clerk Name Role Phone Steven Haynes MD Primary Care Provider [phone] Social History Tobacco Use Types Packs/Day Years [...] to complete this topic Insurance TERA Shah [id number] [facility] Care Teams Card Processing Clerk Relationship Specialty Start Date End Date Steven Haynes MD [address] [place] [address] [address] [place], [place] [address] PCP - General Internal Medicine 02/04/22
--- OUTSIDE RECORDS SUMMARY | 2024-12-23 12:12 | XMS_ITS | Patient Health Record ---
Author Organization [facility] Address [address] [facility] [address] [place] [address] Care Team Providers Care Childbirth And Infant Care Teacher Name Role Phone Jimbo Aj Unavailable [phone] Allergies No Known Allergies Reason For Referral [...] W/U Status Risk Notes Problem Postcoital bleeding (85715913) Postcoital and contact bleeding (N93.0) Active confirmed Problem (817287746) (O03.9) 021 Active confirmed Completed spontaneous Problem Noninflammatory disorder of the vagina (21896164) Bloody vaginal discharge (N89.8) 021 Active confirmed Vaginal irritation Plan Of Treatment No Information Insurance Providers Payer Name Payer Address Payer Phone Subscriber Number Group Number Insured Name Patient Relationship to Insured Coverage Start Date Coverage End Date [place] PPO [address] [place] [address] [id number] Shannon Zamudio Self - patient is the insured 2 Medical (General) History Medical History History ICD Code Yeast infection Surgical History Surgery Date(Month/Year) denies
--- OUTSIDE RECORDS SUMMARY | 2024-12-23 12:13 | XMS_ITS | Patient Health Record ---
Author Organization [facility] Address [address] [place] [address] Care Team Providers Care Pharmacy Delivery Driver Name Role Phone Anjum Crowley Primary Care Provider Anjum Crowley Unavailable Unavailable Radha Gallo Unavailable [phone] Radha Swain Unavailable [phone] Migration, Provider Unavailable Unavailable Allergies No Known [...] Susceptible I- Intermediate * Not on [facility] [place] Count >100,000 RX MCLEAN: R- Resistant S- Susceptible I- Intermediate * [facility] RX MCLEAN: R- Resistant S- Susceptible I- Intermediate * [facility] RX MCLEAN: R- Resistant S- Susceptible I- Intermediate * Not on [facility] Proteus mirabilis: REACTION RX MCLEAN: R- Resistant S- Susceptible I- Intermediate * Not on [facility] Amikacin <=8 S RX MCLEAN: R- Resistant S- Susceptible I- Intermediate * [facility]4 S RX MCLEAN: R- Resistant S- Susceptible I- Intermediate * [facility] Aztreonam <=2 S RX MCLEAN: R- Resistant S- Susceptible I- Intermediate * [facility] Cefepime <=1 S RX MCLEAN: R- Resistant S- Susceptible I- Intermediate * [facility] Ceftazidime <=2 S RX MCLEAN: R- Resistant S- Susceptible I- Intermediate * Not on [facility] Ceftriaxone <=1 S RX MCLEAN: R- Resistant S- Susceptible I- Intermediate * [facility] Ciprofloxacin <=0.25 S RX MCLEAN: R- Resistant S- Susceptible I- Intermediate * [facility] Ertapenem <=0.25 S RX MCLEAN: R- Resistant S- Susceptible I- Intermediate * [facility] Gentamicin 4 S RX MCLEAN: R- Resistant S- Susceptible I- Intermediate * [facility] Levofloxacin <=0.5 S RX MCLEAN: R- Resistant S- Susceptible I- Intermediate * [facility] Nitrofurantoin >64 R RX MCLEAN: R- Resistant S- Susceptible I- Intermediate * [facility] Tetracycline >8 R RX MCLEAN: R- Resistant S- Susceptible I- Intermediate * [facility] Tobramycin <=2 S RX MCLEAN: R- Resistant S- Susceptible I- Intermediate * [facility] Trimethoprim/Sulfame tho xazole <=0.5/9.5 S RX MCLEAN: R- Resistant S- Susceptible I- Intermediate * [facility] Piperacillin/Tazobac alexander <=2/4 S RX MCLEAN: R- Resistant S- Susceptible I- Intermediate * Not on [facility] RX MCLEAN: R- Resistant S- Susceptible I- Intermediate * Not on [facility] MRI EXTREM UPR JOINT RT WO Reviewed date:10/19/2024 09:28:56 AM Interpretation: Performing Lab: Notes/Report: [address] [place] [address] Name: SHANNON OAKLEY Exam Date: 10/18/2024 : 1995 Age 29 years Gender: F Physician: ANJUM CROWLEY Facility: [facility] Facility HSV: Outpatient Exam: MRI EXTREM UPR [...] Ras Pope MD 10/18/2024 03:20 PM EDT RP Dictated By: RAS POPE Transcribed By: Transcribed On: 10/18/2024 2:09 PM Electronically signed by: RAS POPE 10/18/2024 Thank you for referring SHANNON OAKLEY to [facility]. Legally authenticated by NORI MCGINNIS MD 2024-10-18 14:09:19 MAGNESIUM (622) Reviewed date:04/06/2024 09:00:15 PM Interpretation: Performing Lab:[facility] [id number] [employer], [facility] RapidsSttoGN[address] Justo Sprague Notes/Report: NON-FASTING; NON-FASTING; NON-FASTING; NON-FASTING MAGNESIUM 2.1 1.5-2.5 mg/dL CBC (INCLUDES DIFF/PLT) (929 9) Reviewed date:04/06/2024 09:00:15 PM Interpretation: Performing Lab:[facility] [employer] [facility] [employer], [facility] Co[facility] RapidsVutnLY[address] Justo Sprague Notes/Report: NON-FASTING; NON-FASTING; NON-FASTING; NON-FASTING [...] MPV 10.7 7.5-12.5 fL ABSOLUTE NEUTROPHILS 2530 5111-2736 cells/uL ABSOLUTE LYMPHOCYTES 2005 850-3900 cells/uL ABSOLUTE MONOCYTES 375 200-950 cells/uL ABSOLUTE EOSINOPHILS 60 15-500 cells/uL ABSOLUTE BASOPHILS 30 0-200 cells/uL NEUTROPHILS 50.6 LYMPHOCYTES 40.1 MONOCYTES 7.5 EOSINOPHILS 1.2 BASOPHILS 0.6 COMPREHENSIVE METABOLIC PANE L (15501) Reviewed date:04/06/2024 09:00:15 PM Interpretation: Performing Lab:CB, [facility] [facility], [facility] RapidsMasoXI[address] Justo Sprague Notes/Report: NON-FASTING; NON-FASTING; NON-FASTING; NON-FASTING [...] Reviewed date:04/06/2024 09:00:15 PM Interpretation: Performing Lab:[facility], [employer] [id number] [employer], Ofelia FelizDosfGY[address] Justo Sprague Notes/Report: NON-FASTING; NON-FASTING; NON-FASTING; NON-FASTING T3 UPTAKE 34 22-35 % T4 (THYROXINE), TOTAL 7.9 5.1-11.9 mcg/dL FREE T4 INDEX (T7) 2.7 1.4-3.8 TSH 1.84 Reference Range > or = 20 Years 0.40-4.50 Ranges First trimester 0.26-2.66 Second trimester 0.55-2.73 Third trimester 0.43-2.91 CULTURE, AEROBIC AND ANAEROB IC W/GRAM STAIN (4446) Reviewed date:05/11/2024 11:01:17 AM Interpretation: Performing Lab:[facility], [employer] [id number] [employer], ClicDataFmimMM[address] Justo Sprague Notes/Report: NON-FASTING CULTURE, ANAEROBIC BACTERIA W/GRAM STAIN SEE NOTE CULTURE, ANAEROBIC BACTERIA W/GRAM STAIN Micro Number: [id number] Test Status: Final Specimen Source: Other (specify) Specimen Quality: Adequate Gram Stain: No organisms seen Result: No anaerobes isolated. CULTURE, AEROBIC BACTERIA SEE NOTE CULTURE, AEROBIC BACTERIA Micro Number: [id number] Test Status: Final Specimen Source: Finger Specimen [...] and cephems with staphylococcal indications, including cefazolin. CULTURE, URINE, ROUTINE (395 ) Reviewed date:09/10/2024 10:10:27 PM Interpretation: Performing Lab:[facility], [facility] [address], [place] GiatBD[address] Justo Sprague Notes/Report: NON-FASTING CULTURE, URINE, ROUTINE SEE NOTE CULTURE, URINE, ROUTINE Micro Number: [id number] Test Status: Final Specimen Source: Urine Specimen [...] 1.015 Ketone neg Bili neg Glucose neg Reason For Referral Reason MRI right shoulder-3 weeks of pain after acute injury-see note-first available location-[facility] Diagnosis 1 Rotator cuff syndrom e of right shoulder (M75.101) Referral Organization [facility] Referring Provider First Name Anjum Referring Provider Last Name Max Referring Provider Speciality Internal M edicine Referred Organization [facility] MRI Referred Address [address] [place], [place],[address], Referred Provider Specialty Diagnostic R adiology General Notes Tanja Grant 2024 03:12:00 PM >sent to [facility], [facility] and [facility]- Spoke with patient about all 3 Referral Priority Urgent Referral Appointment Date 10/18/2024 Reason SolaAnjum muhammad Kevin byrd 10/18/2024 07:41:00 PM EDT > Has normal mri but severe shoulder blade pain and winged scapula...set up PT with Florentin at [facility] Referral Organization [facility] Referring Provider First Name Anjum Referring Provider Last Name Max Referring Provider Speciality Internal edicine Referred Organization [facility] Referred Address [address] [place], [place],[address], Referred Provider Specialty Physical The rapist General Notes Tanja Grant 2024 10:16:18 AM >sent to [facility] Referral Priority Routine Reason Anjum Crowley Kevin byrd 10/18/2024 07:41:00 PM EDT > Has normal mri but severe shoulder blade pain and winged scapula...set up PT with Florentin at [facility] and appt with [facility] ortho shouler person jose Referral Organization [facility] Referring Provider First Name Anjum Referring Provider Last Name Mxa Referring Provider Speciality Internal edicine Referred Organization [facility] Referred Address [address] [place], [place],[address],[place] Referred Provider Specialty Orthopedic S urgery General Notes Tanja Grant 2024 12:04:33 PM >Placed with [facility] Referral Priority Routine Medications Medication SIG [...] Risk Notes Problem Intermenstrual bleeding - irregular (70286473) Menorrhagia with irregular cycle (N92.1) Active confirmed Problem Rupture of right rotator cuff (44578943742568249 ) Rotator cuff syndrome of right shoulder (M75.101) Active confirmed Problem Goiter (6366118) Goiter (E04.9) Active confirme d Problem Acquired hypothyroidism (801396621) Acquired hypothyroidism (E03.9) Active confirmed Problem Hyperthyroidism (74018942) Hyperthyroidism (E05.90) Active confirmed Vital Signs Heart Rate 80 /min 12/10/2024 Temperature 98 degrees Fahrenheit 12/10/2024 Blood pressure diastolic 72 mm Hg 12/10/2024 Height 62 in 12/10/2024 Blood pressure systolic 100 mm Hg 12/10/2024 Weight 114 lbs 12/10/2024 BMI 20.85 kg/m2 12/10/2024 Encounters Encounter Location Date Provider Diagnosis [facility] [address] [facility] [address] [place] [address] 05/14/2024 Provider Migration [facility] [address] [address] 04/07/2024 Anjum Crowley Acquired hypothyroidism E03.9 [facility] [address] [address] 05/05/2024 Radha Swain Paronychia of finger of right hand L03.011 [facility] [address] [address] 05/10/2024 Anjum Crowley Paronychia of finger of right hand L03.011 [facility] [address] [address] 09/06/2024 Radha Swain Dysuria R30.0 and Acute cystitis with hematuria N30.01 [facility] [address] [facility] [address] [place] [address] 10/14/2024 Anjum Max Rotator cuff syndrom e of right shoulder M75.101 and Acute right-sided thoracic back pain M54.6 [facility] [address] [place] [address] 12/10/2024 Radha Gallo Dysuria R30.0 and Acute UTI N39.0 [facility] [address] [place], [place] [address] 05/09/2024 Anjumluly Crowley Assessments Encounter Date Diagnosis [...] : Shoulder, Right 10/14/2024 M-Thyroid Panel 03/06/2023 E-Cwjm-Ksyoyyuimtaej Antibody 03/06/2023 M-Vitamin B12 03/05/2023 M-Thyroid Peroxidase Antibodies 03/06/19 24 Insurance Providers Payer Name Payer Address Payer Phone Subscriber Number Group Number Insured Name Patient Relationship to Insured Coverage Start Date Coverage End Date [facility] [address] [place] [address] [phone] [id number] Shannon Oakley Self - patient is the insured Medical (General) History Surgical History Surgery Date(Month/Year) wisdom tooth removal Hospitalization History Reason Date(Month/Year) child
[2024-12-23 14:16] LABS: Thyroid Stimulating Hormone 1.43 uIU/mL (0.465-4.68)
== END 2024-12-23 23:59 | disposition home or self-care (01) ==
LOC: LAB 12:09
PROVIDERS: PCP Internal Medicine Adolescent Medicine; Visit Provider Obstetrics & Gynecology
DX: Z34.81 Encounter for supervision of other normal pregnancy, first trimester (principal); Z3A.00 Weeks of gestation of pregnancy not specified
CPT/HCPCS: 36415; 84443; 84702